=== PATIENT | female | born 1965 | race Caucasian/White ===

== ENCOUNTER → 2021-02-10 | Outpatient (CLI) | payer OTHER, SELFPAY ==
[2021-02-10 14:49] VITALS: BMI 28.1
[2021-02-15 17:34] LABS: HPV APTIMA, High Risk Negative (Negative)
== END | disposition home or self-care (01) ==
LOC: LABSPEC 17:02
PROVIDERS: Visit Provider Obstetrics & Gynecology
DX: Z12.4 Encounter for screening for malignant neoplasm of cervix (principal)
CPT/HCPCS: 87624; 88175; G0145

== ENCOUNTER → 2021-03-14 06:59 | Outpatient (CLI) | payer OTHER, SELFPAY ==
[2021-02-10 14:49] VITALS: BMI 28.1
--- NOTE | 2021-03-14 07:01 | BI_ITS ---
MAMMOGRAPHY - BILATERAL SCREENING REASON FOR EXAM: Female, 56 years old. Routine annual screening examination. PERTINENT HISTORY: Non-contributory. TECHNIQUE: Digital bilateral breast carlos (3D mammographic acquisition) in the CC and MLO projections. 2-D mediolateral oblique (MLO) and craniocaudad (CC) views of both breasts were obtained. CAD: Full Field Digital Mammography with Computer Added Detection was performed. COMPARISON: Comparison is made with prior outside examination dated 08/11/2018. FINDINGS: Breast Composition: There are scattered areas of fibroglandular density. There are no dominant masses or suspicious calcifications. No other significant abnormalities are identified. There has been no significant change since the prior study. BI/SCRN MAMM (CAD)W/CARLOS BILAT IMPRESSION: Stable bilateral screening mammogram. Yearly follow-up mammogram recommended. (A) ASSESSMENT CATEGORY: BIRADS Category 1: Negative. A letter regarding these results will be sent to the patient by the facility within 30 days. Approximately 10% of breast cancers are not detected by mammography. A normal mammogram should not delay biopsy of a clinically suspicious abnormality. [id number] Electronically Signed: Walter Curiel MD at 8:26 EDT , Service support ,
[2021-03-14 08:01] LABS: ALB/GLOB Ratio 1.1 RATIO (0.9-2.4); AST(SGOT) 21 U/L (15-37); Alanine Aminotransfer ALT/SGPT 35 U/L (13-56); Albumin, Serum 4.1 g/dL (3.2-5.0); Alkaline Phosphatase 83 U/L (45-117); Anion Gap 6 (5-15); BUN 19 mg/dL (7-18); BUN/Creat Ratio 29.3 RATIO (10-20); Chloride 107 mmol/L (98-107); Cholesterol 304 mg/dL (200); Creatinine, Serum 0.65 mg/dL (0.55-1.02); EST Glomerular Filtration Rate 101 mL/min (>60); Est Glom Filt Rate - Afr Amer 122 mL/min (>60); Globulin 3.6 g/dL (2.2-4.2); Glucose 101 mg/dL (74-106); High Density Lipoprotein 67 mg/dL; Potassium 3.7 mmol/L (3.5-5.1); Protein, Total 7.7 g/dL (6.4-8.2); Sodium Level 141 mmol/L (136-145); Thyroid Stim Hormone (TSH) 0.34 uIU/mL (0.358-3.74); Triglycerides 131 mg/dL; Very Low Density Lipoprotein 26 mg/dL (5-40)
[2021-03-14 15:35] LABS: Vitamin D,25 Hydroxy 28.7 ng/mL
== END ==
PROVIDERS: Referring Provider Obstetrics & Gynecology; Visit Provider Obstetrics & Gynecology
DX: Z01.419 Encounter for gynecological examination (general) (routine) without abnormal findings (principal); Z12.31 Encounter for screening mammogram for malignant neoplasm of breast; Z13.220 Encounter for screening for lipoid disorders; Z13.29 Encounter for screening for other suspected endocrine disorder; Z13.21 Encounter for screening for nutritional disorder
CPT/HCPCS: 36415; 77063; 77067; 80053; 80061; 82306; 84443

== ENCOUNTER → 2022-01-09 | Outpatient (CLI) | payer OTHER, SELFPAY ==
[2022-01-09 10:34] LABS: Vitamin B12 554 pg/mL (211-911); Vitamin D,25 Hydroxy 37.4 ng/mL
[2022-01-09 10:39] LABS: ALB/GLOB Ratio 1.2 RATIO (0.9-2.4); AST(SGOT) 30 U/L (15-37); Alanine Aminotransfer ALT/SGPT 55 U/L (13-56); Alkaline Phosphatase 115 U/L (45-117); Anion Gap 6 (5-15); BUN 15 mg/dL (7-18); BUN/Creat Ratio 21.5 RATIO (10-20); Calcium,Total 8.9 mg/dL (8.5-10.1); Chloride 106 mmol/L (98-107); Cholesterol 266 mg/dL (200); EST Glomerular Filtration Rate 92 mL/min (>60); Est Glom Filt Rate - Afr Amer 112 mL/min (>60); Globulin 3.4 g/dL (2.2-4.2); Glucose 89 mg/dL (74-106); High Density Lipoprotein 73 mg/dL; Potassium 3.8 mmol/L (3.5-5.1); Protein, Total 7.4 g/dL (6.4-8.2); Sodium Level 140 mmol/L (136-145); T4 Free Direct 1.05 ng/dL (0.76-1.46); Thyroid Stim Hormone (TSH) 0.73 uIU/mL (0.358-3.74); Triglycerides 88 mg/dL; Very Low Density Lipoprotein 18 mg/dL (5-40)
== END | disposition home or self-care (01) ==
LOC: MFPLAB 08:43
PROVIDERS: Visit Provider Family Medicine
DX: E78.5 Hyperlipidemia, unspecified (principal); R79.89 Other specified abnormal findings of blood chemistry; E55.9 Vitamin D deficiency, unspecified; E53.8 Deficiency of other specified B group vitamins
CPT/HCPCS: 36415; 80053; 80061; 82306; 82607; 84439; 84443

== ENCOUNTER → 2022-07-10 | Outpatient (CLI) | payer OTHER, SELFPAY ==
[2022-07-10 10:36] LABS: Cholesterol 265 mg/dL (200); High Density Lipoprotein 67 mg/dL; Triglycerides 78 mg/dL; Very Low Density Lipoprotein 16 mg/dL (5-40)
== END | disposition home or self-care (01) ==
LOC: MFPLAB 09:11
PROVIDERS: PCP Family Medicine; Referring Provider Family Medicine; Visit Provider Family Medicine
DX: E78.5 Hyperlipidemia, unspecified (principal)
CPT/HCPCS: 36415; 80061

== ENCOUNTER → 2022-09-01 | Outpatient (CLI) | payer OTHER, SELFPAY ==
--- NOTE | 2022-09-01 12:16 | BI_ITS ---
MAMMOGRAPHY - BILATERAL SCREENING REASON FOR EXAM: Female, 57 years old. Routine annual screening examination. PERTINENT HISTORY: Non-contributory. History of prior left needle biopsy. TECHNIQUE: Digital bilateral breast carlos (3D mammographic acquisition) in the CC and MLO projections. 2-D mediolateral oblique (MLO) and craniocaudad (CC) views of both breasts were obtained. CAD: Full Field Digital Mammography with Computer Added Detection was performed. COMPARISON: Comparison is made with prior study dated 03/14/2021. FINDINGS: Breast Composition: There are scattered areas of fibroglandular density. There are no dominant masses or suspicious calcifications. A tissue clip marker is seen in the deep upper lateral aspect of the left breast. No other significant abnormalities are identified. There has been no significant change since the prior study. BI/SCRN MAMM (CAD)W/CARLOS BILAT IMPRESSION: Stable bilateral screening mammogram. Yearly follow-up mammogram recommended. (A) ASSESSMENT CATEGORY: BIRADS Category 2: Benign. A letter regarding these results will be sent to the patient by the facility within 30 days. Approximately 10% of breast cancers are not detected by mammography. A normal mammogram should not delay biopsy of a clinically suspicious abnormality. [id number] Electronically Signed: Walter Curiel MD at 11:13 EST ,
== END | disposition home or self-care (01) ==
LOC: OPBI 12:14
PROVIDERS: PCP Family Medicine; Visit Provider Nurse Practitioner Women's Health
DX: Z12.31 Encounter for screening mammogram for malignant neoplasm of breast (principal)
CPT/HCPCS: 77063; 77067

== ENCOUNTER → 2022-09-19 | Outpatient (CLI) | payer OTHER, SELFPAY ==
--- NOTE | 2022-09-19 08:36 | BD_ITS ---
STUDY: DUAL ENERGY X-RAY ABSORPTIOMETRY / DXA REASON FOR EXAM: Female, 57 years old. Estrogen deficiency TECHNIQUE: Bone Mineral Density (BMD) measurements of lumbar spine and bilateral hips were obtained. COMPARISON: None. FINDINGS: Lumbar Spine (L1-L4): g/cm2 (0.705) / T-score (-3.1) / Z-score (-1.9) Findings are suggestive of osteoporosis with a high fracture risk. Left Femur Total: g/cm2 (0.797) / T-score (-0.2) / Z-score (-0.4) Left Femoral Neck: g/cm2 (0.653) / T-score (-1.8) / Z-score (-0.6) Right Femur Total: g/cm2 (0.792) / T-score (-1.2) / Z-score (-0.4) Right Femoral Neck: g/cm2 (0.697) / T-score (-1.4) / Z-score (-0.2) BD/Dexa Bone Density Study IMPRESSION: The patient is considered osteoporotic as outlined below according to World Patel Organization (WHO) criteria with a high fracture risk. Reference Information: The T-score is the number of standard deviations above or below the standard which is normal for young adults at their peak bone mineral density. The World Health Organization (WHO) interprets the T-scores as follows: Above -1 Normal bone density Between -1 and -2.5 Osteopenia Equal to / or below -2.5 Osteoporosis As a practical clinical guideline, osteopenia may be graded as follows: Mild -1 through -1.5 Moderate -1.6 through -2.0 Severe -2.1 through -2.4 The Z-score is the number of standard deviations above or below age-matched controls. A Z-score of less than -1.5 would be considered abnormal. References: 1. NIH Osteoporosis and Related Bone Diseases www osteo.org 2. International Society for Clinical Densitometry www iscd.org 3. National Osteoporosis Foundation www nof.org Electronically Signed: Walter Curiel MD at 13:01 EST ,
== END | disposition home or self-care (01) ==
PROVIDERS: PCP Family Medicine; Referring Provider Obstetrics & Gynecology; Visit Provider Obstetrics & Gynecology
DX: M81.0 Age-related osteoporosis without current pathological fracture (principal); E28.39 Other primary ovarian failure
CPT/HCPCS: 77080

== ENCOUNTER 2025-04-24 12:07 | Inpatient (IN) | payer SELFPAY ==
[2025-04-24] VITALS (14 sets, daily range): BP systolic 100–131; BP diastolic 39–70; PULSE 68–86; RESP 14–18; TEMP 36.6–37.3; O2SAT 92–100; BMI 27.6
[2025-04-24 12:27] LABS: Hematocrit 38.6 % (37-47); Hemoglobin 12.9 g/dL (12.0-15.0); Immature Granulocytes Count 0.140 X10^3/uL (0.0-0.0); Mean Corp Hgb Conc 33.4 g/dL (32-36); Mean Corpuscular Volume 85.0 fL (81-99); Mean Platelet Vol. 9.9 fl (6.2-12.0); NRBC Flagged by Analyzer 0 % (0-5); Platelet Count 213 K/mm3 (150-450); RBC Distribution Width CV 13.2 % (11.6-14.6); RBC Distribution Width SD 40.4 fl (35.1-43.9); Red Blood Count 4.54 M/mm3 (4.2-5.4); White Blood Count 12.0 K/mm3 (4.4-11.0)
--- NOTE | 2025-04-24 12:50 | CT_ITS ---
PROCEDURE: ABDOMEN/PELVIS W IV CONT ONLY 04/24/2025 REASON FOR EXAM: RLQ PAIN TECHNIQUE: ABDOMEN/PELVIS W IV CONT ONLY Coronal and Sagittal reconstruction series were provided. CONTRAST: Isovue 370 VOLUME: 100 mL One or more dose reduction techniques were used (e.g., Automated exposure control, adjustment of the mA and/or kV according to patient size, use of iterative reconstruction technique. RADIATION DOSE SUMMARY: CTDlvol: 11.75 mGy DLP: 529.07 mGycm COMPARISON: None FINDINGS: Lung bases: Unremarkable Liver: Minimal dilatation of the central intrahepatic. This may be related to the status post cholecystectomy state. Gallbladder: Surgically absent. The common bile duct measures 7.5 mm distally. No evidence of choledocholithiasis. Spleen: Normal size. Pancreas: Normal size without evidence of mass surrounding inflammation or ductal dilation. Adrenals: Unremarkable Kidneys: Tiny nonobstructive calculus in the lower pole calyx of the right kidney. Bladder: Unremarkable Reproductive Organs: Heterogeneous appearance of the uterus suggestive of possible fibroid change. Bowel: Unremarkable Appendix: Dilated appendix with evidence of a calcified phlebolith within it and increased markings in the surrounding peritoneal fat. Small amount of fluid is seen in the right lower quadrant. This is in keeping with acute appendicitis. Lymph nodes: None Vasculature: Unremarkable Peritoneum / Retroperitoneum: Unremarkable Bones: Straightening of the normal lumbar lordosis. CT/Abdomen/Pelvis W IV Cont ONLY IMPRESSION: Status post cholecystectomy. Mild degree of central intrahepatic biliary ducta l dilatation. Tiny calculus in the lower pole calyx of the right kidney. Findings in keeping with acute appendicitis with evidence of calcified appendic olith within the appendix. Surrounding inflammatory changes and tiny amount of fluid. Reading Location: [id number]
[2025-04-24 13:01] LABS: AST(SGOT) 74 U/L (<=31); Alanine Aminotransfer ALT/SGPT 80 U/L (<=34); Albumin, Serum 4.3 g/dL (3.4-4.8); Alkaline Phosphatase 178 U/L (35-104); Anion Gap 15 (5-15); BUN 12 mg/dL (4-19); BUN/Creat Ratio 17.8 RATIO (10-20); Calcium,Total 9.5 mg/dL (7.6-11.0); Carbon Dioxide 21.3 mmol/L (21.0-32.0); Chloride 99 mmol/L (98-108); Estimated Creatinine Clearance 86.73 ml/min (50-250); Globulin 3.3 g/dL (2.2-4.2); Glucose 131 mg/dL (70-99); Lipase 21 U/L (13-75); Potassium 3.6 mmol/L (3.3-5.1)
[2025-04-24 13:09] LABS: Red Blood Cells-Urine 0 SEEN /hpf (0-5)
[2025-04-24 13:11] LABS: Color, Urine Amber (Yellow); Glucose, Dipstick Normal (Normal); Leukocyte Esterase-Dipstick 25 /ul (Negative); Nitrite-Dipstick Negative (Negative); Occult Blood-Urine 50 /ul (Negative); Protein-Dipstick 100 mg/dl (Negative); Specific Gravity, Urine 1.025 (1.002-1.030); Urine Bilirubin Dipstick 1 mg/dL (Negative)
--- NOTE | 2025-04-24 13:11 | ED.VIS.GI ---
HPI <REYNALDO Gandhi - Last Filed: 04/24/25 14:34> HPI - GI History of Present Illness Chief Complaint: Abd Pain Narrative Narrative: Patient presenting today with right lower quadrant abdominal pain that started yesterday morning. She reports that her pain started as pain across her lower abdomen but has now localized more to the right lower quadrant. The pain is sharp and constant. She reports that movement of her right leg seems to make her pain worse. Previous abdominal surgery includes a cholecystectomy. She denies associated fevers, chills, nausea, vomiting, urinary symptoms, and bowel changes. She reports that she is healthy with no chronic medical conditions. PFSH <REYNALDO aGndhi - Last Filed: 04/24/25 14:34> PFSH Medical History Anal fissure Melanoma Borderline high cholesterol Home Medications ?Medication ?Instructions ?Recorded ?Last Taken ?Type multivitamin 1 tab PO DAILY 02/10/21 Unknown History vitamin B complex (B 1 tab PO DAILY 02/10/21 Unknown History Complex-Vitamin B12 tablet) Allergy/AdvReac Type Severity Reaction Status Date / Time No Known Allergies Allergy Verified 04/24/25 12:08 Family History Mother Cancer uterine Father CVA (cerebral vascular accident) Surgical History History of surgery on arm H/O rectal sphincterotomy H/O dilation and curettage History of cholecystectomy Social History household members: spouse Smoking Status: Former smoker alcohol intake: current alcohol intake frequency: holidays/special occasions only details: social substance use type: does not use caffeine: Yes what type of physical activity do you participate in: other details: 10,000 steps per day seatbelt use: always do you feel safe at home: Yes ROS <REYNALDO Gandhi - Last Filed: 04/24/25 14:34> ROS ED Constitutional Constitutional ED: Denies chills or fever(s) Cardiovascular Cardiovascular: Denies chest pain Respiratory/Chest Respiratory/Chest: Denies dyspnea Gastrointestinal Gastrointestinal: Reports abdominal pain; Denies constipation, diarrhea, melena, nausea or vomiting Genitourinary Genitourinary ED: Denies dysuria, hematuria or urinary urgency Integumentary Denies rash Neurologic Neurologic: Denies weakness EXAM <REYNALDO Gandhi - Last Filed: 04/24/25 14:34> Physical Exam Const Vital Signs: 04/24/25 12:08 04/24/25 14:06 04/24/25 14:17 Temperature 97.8 F 97.8 F 97.8 F Temperature Source Temporal Pulse Rate 77 77 77 Respiratory Rate 18 18 18 Blood Pressure 105/70 105/70 105/70 Blood Pressure Mean 81 81 Pulse Ox 100 100 100 Oxygen Delivery Method Room Air Room Air Positive well nourished, well developed and no apparent distress General Appearance ED: well developed HEENT Reports normocephalic and head/scalp atraumatic Mouth ED: Yes moist mucous membranes normal Eyes PERRL and EOMs intact bilaterally Neck full ROM and supple Chest Wall inspection of chest normal Resp normal respiratory effort and clear to auscultation bilaterally Cardio regular rate and regular rhythm GI non-distended and no masses GI Narrative: Reported tenderness to McBurney's point, positive Rovsing sign, guarding with palpation to the right lower quadrant, otherwise abdomen is soft Back/Spine normal ROM and normal to inspection Extremity normal to inspection and full ROM Neuro oriented x3, CN's II-XII intact bilaterally, moves all extremities, no focal motor deficits and no sensory deficits noted Sensorium / Orientation: awake and alert Psych mental status grossly normal and thought process normal Skin no rashes or lesions noted and no wounds <Dr. Josue Izaguirre DO - Last Filed: 04/24/25 21:53> Physical Exam Const Vital Signs: 04/24/25 12:08 04/24/25 14:06 04/24/25 14:17 Temperature 97.8 F 97.8 F 97.8 F Temperature Source Temporal Pulse Rate 77 77 77 Respiratory Rate 18 18 18 Blood Pressure 105/70 105/70 105/70 Blood Pressure Mean 81 81 Pulse Ox 100 100 100 Oxygen Delivery Method Room Air Room Air MDM <REYNALDO Gandhi - Last Filed: 04/24/25 14:34> MDM MDM Narrative Medical decision making narrative: Patient presenting today with right lower quadrant abdominal pain that started yesterday morning. She does have tenderness McBurney's point with a positive Rovsing sign and guarding with palpation to the right lower quadrant. Examination is concerning for appendicitis, given the CT scan of the abdomen and pelvis will be obtained to assess for appendicitis, kidney stone, diverticulitis, mass, and other abnormality. Patient given IV fluids, Zofran, and morphine for pain. She does have a mild leukocytosis at 12. CT scan of the abdomen and pelvis reveals findings consistent with acute appendicitis, general surgery was consulted, Dr. Keane will be taking patient to surgery in stable condition, she was given IV Zosyn. Lab Data Attestation: I reviewed the patient's lab results. Lab results narrative: WBC 12, bilirubin 1.5, AST 74, ALT 80, alkaline phosphatase 178 Labs: Laboratory Results - last 24 hr 04/24/25 04/24/25 12:15 13:06 WBC 12.0 H RBC 4.54 Hgb 12.9 Hct 38.6 MCV 85.0 MCH 28.4 MCHC 33.4 RDW Std Deviation 40.4 RDW Coeff of Neri 13.2 Plt Count 213 MPV 9.9 Immature Gran % (Auto) 1.200 H Neut % (Auto) 84.4 H Lymph % (Auto) 8.1 L [place] % (Auto) 6.1 Eos % (Auto) 0.0 Baso % (Auto) 0.2 Absolute Neuts (auto) 10.2 H Absolute Lymphs (auto) 0.97 Nucleated RBC % 0 Sodium 135 Potassium 3.6 Chloride 99 Carbon Dioxide 21.3 Anion Gap 15 BUN 12 Creatinine 0.65 L Estim Creat Clear Calc 86.73 Est GFR (MDRD) Non-Af 101 BUN/Creatinine Ratio 17.8 Glucose 131 H Calcium 9.5 Total Bilirubin 1.50 H AST 74 H ALT 80 H Alkaline Phosphatase 178 H Total Protein 7.7 Albumin 4.3 Globulin 3.3 Albumin/Globulin Ratio 1.3 Lipase 21 Urine Color Urine Clarity Sl. Cloudy Urine pH 5.0 Ur Specific [place] 1.025 Urine Protein 100 H Urine Glucose (UA) Normal Urine Ketones 150 A* Urine Occult Blood 50 H Urine Nitrite Negative Urine Bilirubin 1 H Urine Urobilinogen 1 H Ur Leukocyte Esterase 25 H Urine RBC 0 SEEN Urine WBC 0-5 SEEN Ur Squamous Epith Cells 0-5 SEEN Urine Bacteria 1+ Hyaline Casts 0-5 SEEN Urine Mucus 1+ Radiography Diagnostic Testing: Clinical Impression(s) from Imaging Studies Abdomen/Pelvis CT 04/24/25 12:50 IMPRESSION: Status post cholecystectomy. Mild degree of central intrahepatic biliary ductal dilatation. Tiny calculus in the lower pole calyx of the right kidney. Findings in keeping with acute appendicitis with evidence of calcified appendicolith within the appendix. Surrounding inflammatory changes and tiny amount of fluid. Reading Location: [id number] <Dr. Josue Izaguirre, DO - Last Filed: 04/24/25 21:53> [facility] MDM Narrative Medical decision making narrative: Patient presenting today with right lower quadrant abdominal pain that started yesterday morning. She does have tenderness McBurney's point with a positive Rovsing sign and guarding with palpation to the right lower quadrant. Examination is concerning for appendicitis, given the CT scan of the abdomen and pelvis will be obtained to assess for appendicitis, kidney stone, diverticulitis, mass, and other abnormality. Patient given IV fluids, Zofran, and morphine for pain. She does have a mild leukocytosis at 12. CT scan of the abdomen and pelvis reveals findings consistent with acute appendicitis, general surgery was consulted, Dr. Keane will be taking patient to surgery in stable condition, she was given IV Zosyn. ED attending note: I evaluated the patient in conjunction with the FRANCES. I agree with his/her statements and above findings. I have personally performed a face to face assessment of the patient and have reviewed the FRANCES Note. I performed a substantive portion of the visit including all aspects of the following. I personally saw the patient performed chart review, physical exam, reviewed labs, imaging (if obtained), and formulated a treatment and management plan. This note was generated with [employer] dictation software. It may contain incorrect words, spelling, and punctuation that were not noted in review of the chart prior to signing. Lab Data Labs: Laboratory Results - last 24 hr 04/24/25 04/24/25 12:15 13:06 WBC 12.0 H RBC 4.54 Hgb 12.9 Hct 38.6 MCV 85.0 MCH 28.4 MCHC 33.4 RDW Std Deviation 40.4 RDW Coeff of Neri 13.2 Plt Count 213 MPV 9.9 Immature Gran % (Auto) 1.200 H Neut % (Auto) 84.4 H Lymph % (Auto) 8.1 L [place] % (Auto) 6.1 Eos % (Auto) 0.0 Baso % (Auto) 0.2 Absolute Neuts (auto) 10.2 H Absolute Lymphs (auto) 0.97 Nucleated RBC % 0 Sodium 135 Potassium 3.6 Chloride 99 Carbon Dioxide 21.3 Anion Gap 15 BUN 12 Creatinine 0.65 L Estim Creat Clear Calc 86.73 Est GFR (MDRD) Non-Af 101 BUN/Creatinine Ratio 17.8 Glucose 131 H Calcium 9.5 Total Bilirubin 1.50 H AST 74 H ALT 80 H Alkaline Phosphatase 178 H Total Protein 7.7 Albumin 4.3 Globulin 3.3 Albumin/Globulin Ratio 1.3 Lipase 21 Urine Color Urine Clarity Sl. Cloudy Urine pH 5.0 Ur Specific [place] 1.025 Urine Protein 100 H Urine Glucose (UA) Normal Urine Ketones 150 A* Urine Occult Blood 50 H Urine Nitrite Negative Urine Bilirubin 1 H Urine Urobilinogen 1 H Ur Leukocyte Esterase 25 H Urine RBC 0 SEEN Urine WBC 0-5 SEEN Ur Squamous Epith Cells 0-5 SEEN Urine Bacteria 1+ Hyaline Casts 0-5 SEEN Urine Mucus 1+ Radiography Diagnostic Testing: Clinical Impression(s) from Imaging Studies Abdomen/Pelvis CT 04/24/25 12:50 IMPRESSION: Status post cholecystectomy. Mild degree of central intrahepatic biliary ductal dilatation. Tiny calculus in the lower pole calyx of the right kidney. Findings in keeping with acute appendicitis with evidence of calcified appendicolith within the appendix. Surrounding inflammatory changes and tiny amount of fluid. Reading Location: [facility] <Dr. Josue Izaguirre, DO - Last Filed: 04/24/25 21:53> Critical Care Time Critical Care Time: Yes Critical care time (excluding procedures): 30-74 minutes and Discussing w/Consultants Discharge Plan Dx/Rx/DC Orders Clinical Impression: Acute appendicitis Disposition Disposition: Acute Care Hospital [facility] Discharge Date/Time: 04/24/25 14:08
[2025-04-24 13:13] LABS: Ketone-Dipstick 150 mg/dl (Negative)
[2025-04-24 13:44] LABS: Mucous, Urine 1+ /hpf (<or=2+); Squamous Epithelial Cells - UA 0-5 SEEN /hpf (5-10)
--- NOTE | 2025-04-24 13:45 | APP_PTH ---
PATIENT: AIYANA LAMBERT LOC: MS3 U#:[id number] AGE/SX: 60/F [place] [facility] [place]: Dr. Derik Keane MD : 1965 BED: 1 DIS: 04/26/2025 SPEC #: [id number] RECD: 04/24/25 16:45 STATUS: JULIAN REKeenan #: [id number] KEYANA: 04/24/25 13:[address]: Derik Keane DEPT: SURGICAL PATHOLOGY RECD BY: Jeet Vasquez ENTERED: 04/27/25 10:43 SP TYPE: APPENDIX OTHR DR: Dr. Kraig Maldonado MD Tissues: A - Appendix, NOS Procedures: Surgery Specimen Level III HEADER OPERATION: Laparoscopic appendectomy PRE-OP DIAGNOSIS: Acute appendicitis TISSUE SUBMITTED: A- Appendix MICROSCOPIC DIAGNOSIS A. Appendix, laparoscopic appendectomy: - Acute appendicitis with apparent perforation. - Fecalith. MICROSCOPIC DESCRIPTION Slides are reviewed. GROSS DESCRIPTION A. Received in formalin labeled with the patient's name and date of . Designated as appendix is a 7.9 x 1.0 cm tristan-red to farrell appendix with serosal congestion and patchy fibrinous exudate. The margin is inked black and shaved. Sectioning reveals tristan-farrell and congested mucosa with a moderate amount of fecal material within the lumen to include a fecalith. There is a possible perforation (versus wall thinning). Artificial Limb Fitter sections are submitted in 2 cassettes as follows: A1: Distal tipA2: Margin, cross-sections HI 04/27/2025 CPT:15925
--- NOTE | 2025-04-24 14:06 | HP.PCM.SX_ITS ---
HPI - General HPI Narrative AIYANA LAMBERT, is a 60 F who presents with pain since yesterday. The pain is in the right lower quadrant. She denies nausea or vomiting. Denies fevers or chills. She has a history of laparoscopic cholecystectomy. [facility] Medical History Anal fissure Melanoma Borderline high cholesterol Home Medications ?Medication ?Instructions ?Recorded ?Last Taken ?Type multivitamin 1 tab PO DAILY 02/10/21 Unkn own History vitamin B complex (B 1 tab PO DAILY 02/10/21 Unkn own History Complex-Vitamin B12 tablet) Allergy/AdvReac Type Severity Reaction Status Date / Time No Known Allergies Allergy Verified 04/24/25 12:08 Family History Mother Cancer uterine Father CVA (cerebral vascular accident) Surgical History History of surgery on arm H/O rectal sphincterotomy H/O dilation and curettage History of cholecystectomy Social History household members: spouse Smoking Status: Former smoker alcohol intake: current alcohol intake frequency: holidays/special occasions only details: social substance use type: does not use caffeine: Yes what type of physical activity do you participate in: other details: 10,000 steps per day seatbelt use: always do you feel safe at home: Yes Vital Signs Vital Signs Vital Signs: 04/24/25 12:08 Temperature 97.8 F Temperature Source Temporal Pulse Rate 77 Respiratory Rate 18 Blood Pressure 105/70 Blood Pressure Mean 81 Pulse Ox 100 Oxygen Delivery Method Room Air Weight Weight: 155 lb 11.2 oz Body Mass Index (BMI) 27.6 Physical Exam Const oriented x3 and no apparent distress Resp normal respiratory effort GI soft to palpation Palpation: tender RLQ Extremity normal to inspection Results Lab / Micro Data 04/24/25 12:15 04/24/25 12:15 Labs: Laboratory Results - last 24 hr 04/24/25 12:15: WBC 12.0 H, RBC 4.54, Hgb 12.9, Hct 38.6, MCV 85.0, MCH 28.4, MCHC 33.4, RDW Std Deviation 40.4, RDW Coeff of Neri 13.2, Plt Count 213, MPV 9.9, Immature Gran % (Auto) 1.200 H, Neut % (Auto) 84.4 H, Lymph % (Auto) 8.1 L, [place] % (Auto) 6.1, Eos % (Auto) 0.0, Baso % (Auto) 0.2, Absolute Neuts (auto) 10.2 H, Absolute Lymphs (auto) 0.97, Nucleated RBC % 0, Sodium 135, Potassium 3.6, Chloride 99, Carbon Dioxide 21.3, Anion Gap 15, BUN 12, Creatinine 0.65 L, Estim Creat Clear Calc 86.73, Est GFR (MDRD) Non-Af 101, BUN/Creatinine Ratio 17.8, Glucose 131 H, Calcium 9.5, Total Bilirubin 1.50 H, AST 74 H, ALT 80 H, A lkaline Phosphatase 178 H, Total Protein 7.7, Albumin 4.3, Globulin 3.3, Albumin/Globulin Ratio 1.3, Lipase 21 / 13:06: Urine Color , Urine Clarity Sl. Cloudy, Urine pH 5.0, Ur Specific [place] 1.025, Urine Protein 100 H, Urine Glucose (UA) Normal, Urine Ketones 150 A*, Urine Occult Blood 50 H, Urine Nitrite Negative, Urine Bilirubin 1 H, Urine Urobilinogen 1 H, Ur Leukocyte Esterase 25 H, Urine RBC 0 SEEN, Urine WBC 0-5 SEEN, Ur Squamous Epith Cells 0-5 SEEN, Urine Bacteria 1+, Hyaline Casts 0-5 SEEN, Urine Mucus 1+ Assessment & Plan Assessment/Plan (1) Acute appendicitis: PLAN: The patient has right lower quadrant pain and elevated white count. CT reveals inflamed right lower quadrant with an appendicolith and a dilated appendix. I discussed laparoscopic appendectomy with the patient in detail. I discussed the procedure as well as the risks including but not limited to bleeding, infection, injury to other organ such as the bowel, bladder, ureter. Patient understands all the risks and is 1 to proceed. Antibiotics have been ordered. Derik Keane MD Pager: [facility] [address] [place] [address], [address] [place] [phone] Office:
--- NOTE | 2025-04-24 14:08 | PCM.PRE.AN2 ---
ASA Classification* ASA Classification ASA Classification: 2 and E Assessment & Plan Anesthesia* Anesthesia Assessment Anesthesia Assessment: Discussed sedation and/or anesthesia options, risks, benefits, and alternatives with patient/parents/legal guardian/POA. Questions invited. The patient/parents/legal guardian/POA seems to understand and agrees to proceed with anesthesia plan. Reviewed the physical assessment, medical history, allergy history and patient home medications list prior to surgery/procedure/anesthetic and documented any changes. Performed airway and anesthesia risk assessments. Anesthesia Type Anesthesia Type: General History Source History Obtained from:: Patient and Chart Anesthesia Focused Assessment* Temperature: 97.8 F Pulse Rate: 77 Blood Pressure: 105/70 Respiratory Rate: 18 Pulse Ox: 100 Oxygen Delivery Method: Room Air Airway Assessment Mouth opens: >3 cm Mallampati Score: III Teeth Condition: Caps/Crowns (Patient has a couple crowns. They are tight.) and Missing (Patient has a couple of missing molars lower jaw.) Neck Range of motion (ROM): Full ROM Labs Anesthesia Preop lab: CBC WBC 12.0 K/mm3 (4.4-11.0) H 04/24/25 12:15 04/24/25 RBC 4.54 M/mm3 (4.2-5.4) 04/24/25 12:15 04/24/25 Hgb 12.9 g/dL (12.0-15.0) 04/24/25 12:15 04/24/25 Hct 38.6 % (37-47) 04/24/25 12:15 04/24/25 Plt Count 213 K/mm3 (150-450) 04/24/25 12:15 04/24/25 CHEMISTRY Potassium 3.6 mmol/L (3.3-5.1) 04/24/25 12:15 04/24/25 Sodium 135 mmol/L (133-145) 04/24/25 12:15 04/24/25 BUN 12 mg/dL (4-19) 04/24/25 12:15 04/24/25 Creatinine 0.65 mg/dL (0.70-1.20) L 04/24/25 12:15 04/24/25 Glucose 131 mg/dL (70-99) H 04/24/25 12:15 04/24/25 TSH 0.73 uIU/mL (0.358-3.74) 01/09/22 08:43 01/09/22 COAG Pre-Assessment Diagnosis/Proposed Procedure Planned Operative Procedure(s): Laparoscopic appendectomy. 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 When Was Last Pacemaker Check QUESTION #4 FULL TEXT: You/Your Family Experience fever (hyperthermia) with Anesthesia Last Oral Intake Last Oral intake: Last Oral Intake NPO since Meds taken in AM with sips of water? 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 Female HX of Motion Sickness HX of N/V After Surgery Non-Smoker Duration of Surgery greater than 60 minutes Number of Risk Factors PONV Score Height & Weight Height & Weight: Anesthesia: Height & Weight Height 5 ft 3 in 04/24/25 12:08 Weight: 70.624 kg 04/24/25 12:08 Body Mass Index (BMI) 27.6 04/24/25 12:08 Respiratory Assessment Respiratory Assessment - vinyl top installer: Respiratory Tract Infection Hx - vinyl top installer Hx Respiratory Tract Infection Any additional information?: Yes Hx Respiratory Tract Infection: No STOP Sleep Apnea STOP Sleep Apnea - vinyl top installer: STOP Sleep Apnea - vinyl top installer Hx Hypertension Hx Sleep Apnea CPAP BIPAP Do you snore loudly (louder than talking or can be heard Do you often feel tired/ fatigued/ sleepy during daytime? Has anyone observed you stop breathing during sleep? STOP Results QUESTION #5 FULL TEXT : Do you snore loudly (louder than talking or can be heard through closed doors)? 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 Specify any problems Hx of Preganancy in last 3 Months Nurse Filling Out Transfusion & Questions: Date: Time: Patient unable to answer at this time (ie. confused, unrespo /Reproduction History /Reproductive History - vinyl top installer: /Reproductive Hx- vinyl top installer Hx Now Gestational Age (in weeks): EDC: Hx Hx Para Hx Section SAB No 09/01/22 13:00 Active Medications Active Medications: Current Medications Generic Name Dose Route Start Last Admin Trade Name Freq PRN Reason Stop Dose Admin Piperacillin Sod/Tazobactam 50 mls @ 12.5 mls/hr 04/24/25 22:00 Sod 3.375 gm/ Sodium Chloride IV Q8 HANS Piperacillin Sod/Tazobactam 50 mls @ 12.5 mls/hr 04/24/25 14:15 Sod 3.375 gm/ Sodium Chloride IV 04/24/25 18:14 X1 ONE Sodium Chloride 1,000 mls @ 15 mls/hr 04/24/25 14:00 IV .Q48H HANS PFSH Medical History Anal fissure Melanoma Borderline high cholesterol Home Medications ?Medication ?Instructions ?Recorded ?Last Taken ?Type multivitamin 1 tab PO DAILY 02/10/21 Unknown History vitamin B complex (B 1 tab PO DAILY 02/10/21 Unknown History Complex-Vitamin B12 tablet) Allergy/AdvReac Type Severity Reaction Status Date / Time No Known Allergies Allergy Verified 04/24/25 12:08 Family History Mother Cancer uterine Father CVA (cerebral vascular accident) Surgical History History of surgery on arm H/O rectal sphincterotomy H/O dilation and curettage History of cholecystectomy Social History household members: spouse Smoking Status: Former smoker alcohol intake: current alcohol intake frequency: holidays/special occasions only details: social substance use type: does not use caffeine: Yes what type of physical activity do you participate in: other details: 10,000 steps per day seatbelt use: always do you feel safe at home: Yes Review of Systems (Anesthesia) ROS Narrative System reviewed and no additional complaints, except as documented.
[2025-04-24] MEDS: 0.9% Normal Saline (1000mL) 1,000 ML 15 ML IV (14:09)
[2025-04-24] MEDS: Lactated Ringers 1,000 ML 1000 ML IV (14:33)
[2025-04-24] MEDS: Midazolam 2 MG/2 ML Syringe 1.5 MG IV (14:33)
[2025-04-24] MEDS: fentaNYL 100 MCG/2 ML Ampul 50 MCG IV (14:38)
[2025-04-24] MEDS: Lidocaine 1% (5 ml sdv) 5 ML Vial IV (14:38)
[2025-04-24] MEDS: Piperacil/Tazobactam 3.375 GM/50 ML ML IV (14:40)
[2025-04-24] MEDS: Bupiv/Epi 0.25% 30 ML Vial (15:10)
--- NOTE | 2025-04-24 15:15 | OP.PCM_ITS ---
Operative Report (Standard) Operative Information Date of Procedure: 04/24/25 Pre-Operative Diagnosis: Acute appendicitis Post-Operative Diagnosis: Acute appendicitis with purulence Surgery/Procedure Performed: Laparoscopic appendectomy terrazzo worker: Yes Hot Dip Plating Supervisor: Rianna Sheikh Tasks completed by first officer and flight instructor: Opening & closing and Retracting Type of Anesthesia: General/Regional RN Documented Start/Stop Times: Operation Date: 04/24/25 13:45 Case Time Into Pre-Op 04/24/25 13:54 Anesthesia Start 04/24/25 14:33 Into Room 04/24/25 14:33 Procedure Start 04/24/25 14:46 Procedure End 04/24/25 15:13 Procedure Start Time: 14:46 Procedure Stop Time: 15:13 Select all DRAINS/GRAFTS/IMPLANTS that apply: Drains Drain details: KEVIN to bulb suction Estimated Blood Loss: 10 Specimen collected: Yes Description of specimen(s) removed: Appendix Description of surgery: The patient was brought into the operating room and general anesthesia was induced. The left arm was tucked and the abdomen was prepped and draped in usual sterile fashion. A small midline incision was made superior to the umbilicus and deepened to the level of the fascia. The fascia was elevated and incised. The peritoneum was also elevated and incised. A finger sweep was performed and a balloon trocar was placed into the abdomen and inflated. The abdomen was insufflated to 15 mmHg and the camera was inserted and the abdomen was inspected for any injuries upon entering the abdomen. There were none. The patient was placed in Trendelenburg position and a 5 mm ports placed in the left lower quadrant and suprapubic areas under direct visualization. Next using atraumatic bowel graspers the appendix was identified. The appendix was grasped and elevated and Enseal was used to take down the mesoappendix. A stapler was used to come across the base of the appendix. The appendix was then placed in Endo Catch bag and removed through the umbilical incision. There was purulence in the pelvis which was suctioned and irrigated. The staple line was inspected and found to be hemostatic and intact. A 15 [place] round drain was placed through the left lower quadrant incision and placed into the pelvis. It was sutured to the skin using 4-0 nylon. The 2 5 mm ports are removed under direct visualization. The balloon trocar was deflated and removed and all the air was removed from the abdomen. The umbilical incision fascia was closed with an 0 Vicryl [id number] suture. The incisions were then irrigated with saline and dried. Local anesthetic was injected into the incision sites. The skin incisions were then closed with interrupted 4-0 Monocryl suture and Steri- Strips. Bandages were applied and the patient was awoken and taken to PACU in stable condition. Patient tolerated the procedure well. Surgical Findings: Gangrenous appendicitis with purulence Complications Complications: No Admit VTE Documentation VTE Mechan Device Prophylaxis: SCD's
--- NOTE | 2025-04-24 15:28 | PCM.POST.ANE ---
Anesthesia: Postop Eval I Current Vital Signs Temperature: 98.8 F Pulse Rate: 84 Blood Pressure: 114/39 Respiratory Rate: 16 Pulse Ox: 97 Oxygen Delivery Method: Nasal Cannula Oxygen Flow Rate (L/min): 4 Assessment Airway patent: Yes Spontaneous unlabored respirations: Yes Mental status: Awake and Calm nausea: No Vomiting: No Anesthesia Complication: No Fluid Hydration Crystalloid volume administer (ml): 800 Total IV fluid infused: 800 Progress Note Anesthesia document: Postop Eval 1 completed: Yes
--- OUTSIDE RECORDS SUMMARY | 2025-04-24 16:47 | XMS RPT_ITS | CCD ---
Author Organization [facility] CliniSymi Care Team Providers Care Power Tong Operator Name Role Phone OMA CAR Attending Unavailable JOSEP, TOMER Primary Care Unavailable JOSEP, TOMER Primary Care Unavailable JOSEP, TOMER Attending Unavailable JOSEP, TOMER Primary Care Unavailable LISBONELIDA Moe H Referring Unavailable LISELIDA MEHTA H Attending Unavailable MILAGRO ODELL Referring Unavailable Care Physician, No Primary Referring Provider Un available Dr. Maryana Jernigan Attending Provider Dr. Carlos Maldonado Primary Care Provider Carlos Maldonado Attending Unavailable Care Physician, No Primary Primary Care Unava ilable Carlos Maldonado Attending Unavailable Carlos Maldonado Referring Unavailable Carlos Maldonado Primary Care Unavailable Maryana Jernigan Attending Unavailable Maryana Jernigan Referring Unavailable Carlos Maldonado Primary Care Unavailable Care Physician, No Primary Referring Unava ilable Maryana Jernigan Attending Unavailable Carlos Maldonado Primary Care Unavailable Yuly Acuña Attending Unavailable Carlos Maldonado Primary Care Unavailable Dr. Vladislav Maldonado MD Primary Care Provider Dr. Josue Izaguirre DO Emergency Provider [phone] Diya PEDRO, Dr. More Attending Provider Allergies Allergy Classification Reported Allergen(s) Allergy Type Date of Onset Reaction(s) Facility (1 source) Acetaminophen / HYDROcodone; Translations: [HYDROCODONE-ACETA MINOPHEN] Drug Allergy 12-09-2014 [facility] Repository (1 source) Acetaminophen / oxyCODONE; Translations: [OXYCODONE-ACETAMI NOPHEN] Drug Allergy 12-09-2014 [facility] Repository (1 source) HYDROmorphone; Translations: [HYDROMORPHONE (BULK)] Drug Allergy 12-09-2014 [facility] Repository Medications Current Medications Medication Drug Class(es) Dates Sig (Normalized) Sig (Original) Multivitamin preparation (3 sources) Start: 02-10-2021 take 1 tablet by mouth once daily Multivitamin Active 1 TABLET PO DAILY February 09, 2021 11:00pm Multivitamin tablet (1 source) Start: 02-10-2021 Multivitamin tablet Active 1 {tbl} PO DAILY February 10, 2021 12:00am Vitamin B Complex (B Complex-Vitamin B12) tablet (4 sources) Start: 02-10-2021 Vitamin B Complex (B Complex-Vitamin B12) tablet Active 1 {tbl} PO DAILY February 10, 2021 12:00am Start: 02-10-2021 take 1 tablet by soni th once daily Vitamin B Complex (B Complex-Vitamin B12) tablet Active 1 TABLET PO DAILY February 09, 2021 11:00pm Problems Problem Classification Problem Date Documented Da te Episodic/Chronic Anal and rectal conditions (4 sources) Anal fissure; Translations: [Anal fissure, unspecified] 12-30-2020 Episodic Appendicitis and other appendiceal conditions (2 sources) Acute appendicitis; Translations: [Unspecified acute appendicitis] 04-24-2025 Episodic Disorders of lipid metabolism (2 sources) Hyperlipidemia, unspecified; Translations: [Hyperlipidemia, unspecified] Onset: 01-11-2022 Chronic Melanomas of skin (4 sources) Malignant melanoma; Translations: [Malignant melanoma of skin, unspecified] 02-10-2021 Chronic Comment on above: 1997 Menopausal disorders (1 source) Other primary ovarian failure; 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: 09-01-2022 Chronic Osteoporosis (1 source) Age-related osteoporosis without current pathological fracture; Translations: [Age-related osteoporosis without current pathological fracture] Onset: 09-20-2022 Chronic Other nutritional; endocrine; and metabolic disorders (4 sources) Cholesterol level - finding; Translations: [Disorder of lipoprotein metabolism, unspecified] 12-30-2020 Chronic Other screening for suspected conditions (not mental disorders or infectious disease) (2 sources) Encounter for screening mammogram for malignant neoplasm of breast; Translations: [Encounter for screening mammogram for malignant neoplasm of breast] Onset: 08-09-2018 Episodic Results Test Name Value Interpretation Reference Range Facility Absolute lymphocyte countOrd ered By: ED PROVIDER on 04-24-2025 Lymphocytes Auto (Unsp spec) [#/Vol] 0.97 10*3/uL 0.83-4.51 [facility] Absolute neutrophil countOrd ered By: ED PROVIDER on 04-24-2025 Neutrophils (Bld) [#/Vol] 10.2 10*3/uL High 2.0-7.7 [facility] Anion gap in Serum or Plasma Ordered By: ED PROVIDER on 04-24-2025 Anion gap [Moles/Vol] 15 mmol/L 5-15 [facility] Automated lymphocyte count a s percentage of total leukocytesOrdered By: ED PROVIDER on 04-24-2025 Lymphocytes/100 WBC Auto (Unsp spec) 8.1 % Low 19-41 [facility] BUN/creatinine ratioOrdered By: ED PROVIDER on 04-24-2025 Urea nitrogen/Creatinine [Mass ratio] 17.8 mg/mg 10-20 [facility] Basophil percentageOrdered B y: ED PROVIDER on 04-24-2025 Basophils/100 WBC (Bld) 0.2 % 0-[address] [facility] Bilirubin Test strip Ql (U)O rdered By: Chayito Leavitt on 04-24-2025 Bilirubin Ql (U) 1 mg/dL High Negative [facility] Comment on above: COLOR OF URINE MAY A FFECT DIPSTICK RESULTS. Bilirubin, totalOrdered By: ED PROVIDER on 04-24-2025 Bilirubin [Mass/Vol] 1.50 mg/dL High 0.00-1.[address] [facility] Carbon dioxide, total [Moles /volume] in Central venous bloodOrdered By: ED PROVIDER on 04-24-2025 CO2 [Moles/Vol] 21.3 mmol/L 21.0-32.0 [facility] Chloride assayOrdered By: ED PROVIDER on 04-24-2025 Chloride [Moles/Vol] 99 mmol/L 98-[address] [facility] Eosinophil percentageOrdered By: ED PROVIDER on 04-24-2025 Eosinophils/100 WBC (Bld) 0.0 % 0-5 [facility] Erythrocyte distribution wid th ratioOrdered By: ED PROVIDER on 04-24-2025 Erythrocyte distribution width (RBC) [Ratio] 13.2 % 11.6-14.6 [facility] Erythrocyte distribution wid th standard deviationOrdered By: ED PROVIDER on 04-24-2025 Erythrocyte distribution width (RBC) [Ratio] 40.4 fl 35.1-43.9 [facility] Glomerular filtration rate ( GFR) estimation/1.73 sq m using serum, plasma, or whole bOrdered By: ED PROVIDER on 04-24-2025 GFR/1.73 sq M.predicted among non-blacks MDRD (S/P/Bld) [Vol rate/Area] 101 mL/min/{1.73_m2} >60 [facility] Comment on above: mL/min/1.73m2 CKD-EP I Creatinine Equation (2020) Hematocrit Auto (Bld) [Volum e fraction]Ordered By: ED PROVIDER on 04-24-2025 Hematocrit (Bld) [Volume fraction] 38.6 % 37-47 [facility] Hemoglobin measurementOrdere d By: ED PROVIDER on 04-24-2025 Hemoglobin (Bld) [Mass/Vol] 12.9 g/dL 12.0-15.0 [facility] Hyaline casts LM.LPF (Urine sed) [#/Area]Ordered By: Chayito Leaivtt on 04-24-2025 Hyaline casts (Urine sed) [#/Area] 0 /[LPF] 0-5 [facility] Immature granulocytes/100 WB C Auto (Bld)Ordered By: ED PROVIDER on 04-24-2025 Immature granulocytes/100 WBC (Bld) 1.200 % High 0.0-0.9 [facility] Comment on above: IG% - Immature Granu locytes (promyelocytes, myelocytes and metamyelocytes) > 1% indicates that a LEFT SHIFT is Present. Ketones Test strip Ql (U)Ord ered By: Chayito Leavitt on 04-24-2025 Ketones Ql (U) 150 mg/dl Abnormal Negative [facility] Comment on above: CRITICAL VALUE LIMON D VANDANA BHAGAT04/24/25 1312 Bina Molina.RESULTS READ BACK BY SAME. Laboratory - Chemistry and C hemistry - challengeOrdered By: ED PROVIDER on 04-24-2025 AST [Catalytic activity/Vol] 74 U/L High <32 [facility] Lipase measurementOrdered By : ED PROVIDER on 04-24-2025 Lipase [Catalytic activity/Vol] 21 U/L 13-75 [facility] Comment on above: Please note:LIPASE r evised reference range effective 22. New Lipase methodology. Expected to produce lower values than the previous assay method. NEW Reference Range: 13 - 75 U/L MCV (mean corpuscular volume ) determinationOrdered By: ED PROVIDER on 04-24-2025 MCV (RBC) [Entitic vol] 85.0 fL 81-[address] [facility] Mean corpuscular hemoglobin (MCH) determinationOrdered By: ED PROVIDER on 04-24-2025 MCH (RBC) [Entitic mass] 28.4 pg 27.0-32.0 [facility] Mean corpuscular hemoglobin concentration (MCHC) determinationOrdered By: ED PROVIDER on 04-24-2025 MCHC (RBC) [Mass/Vol] 33.4 g/dL 32-36 [facility] Mean platelet volume determi nationOrdered By: ED PROVIDER on 04-24-2025 Platelet mean volume (Bld) [Entitic vol] 9.9 fL 6.2-12.0 [facility] Microscopic analysis of urin e for red blood cells (RBC)Ordered By: Chayito Leavitt on 04-24-2025 Microscopic analysis of urine for red blood cells (RBC) 0 SEEN /hpf 0-5 [facility] Monocyte percentageOrdered B y: ED PROVIDER on 04-24-2025 Monocytes/100 WBC (Bld) 6.1 % 0-[address] [facility] Mucus LM Ql (Urine sed)Order ed By: Chayito Leavitt on 04-24-2025 Mucus Ql (Urine sed) 1+ /hpf [facility] Neutrophil percentageOrdered By: ED PROVIDER on 04-24-2025 Neutrophils/100 WBC (Bld) 84.4 % High 47-70 [facility] Nitrite Test strip Ql (U)Ord ered By: Chayito Leavitt on 04-24-2025 Nitrite Ql (U) Negative Negative [facility] Nucleated red blood cell per centageOrdered By: ED PROVIDER on 04-24-2025 Nucleated RBC/100 WBC (Bld) [Ratio] 0 % 0-5 [facility] Platelet countOrdered By: ED PROVIDER on 04-24-2025 Platelets (Bld) [#/Vol] 213 10*3/uL 150-450 [facility] Potassium measurement (mass/ volume)Ordered By: ED PROVIDER on 04-24-2025 Potassium (Unsp spec) [Mass/Vol] 3.6 mmol/L 3.3-5.1 [facility] Protein Test strip Ql (U)Ord ered By: Chayito Leavitt on 04-24-2025 Protein Ql (U) 100 mg/dl High Negative [facility] RBC Auto (Bld) [#/Vol]Ordere d By: ED PROVIDER on 04-24-2025 RBC (Bld) [#/Vol] 4.54 10*6/uL 4.2-5.4 [facility] Serum creatinine measurement (mass/volume)Ordered By: ED PROVIDER on 04-24-2025 Creatinine [Mass/Vol] 0.65 mg/dL Low 0.70-1.20 [facility] Serum globulin measurementOr dered By: ED PROVIDER on 04-24-2025 Globulin (S) [Mass/Vol] 3.3 g/dL 2.2-4.[address] [facility] Serum glucose measurement (m ass/volume)Ordered By: ED PROVIDER on 04-24-2025 Glucose [Mass/Vol] 131 mg/dL High 70-99 [facility] Serum or plasma alanine lafleur otransferase (ALT) measurementOrdered By: ED PROVIDER on 04-24-2025 ALT [Catalytic activity/Vol] 80 U/L High <35 [facility] Serum or plasma albumin venkata urement (mass/volume)Ordered By: ED PROVIDER on 04-24-2025 Albumin [Mass/Vol] 4.3 g/dL 3.4-4.8 [facility] Serum or plasma albumin/glob ulin mass ratioOrdered By: ED PROVIDER on 04-24-2025 Albumin/Globulin [Mass ratio] 1.3 {ratio} 0.9-2.4 [facility] Serum or plasma alkaline kelli sphatase measurementOrdered By: ED PROVIDER on 04-24-2025 ALP [Catalytic activity/Vol] 178 U/L High 35-104 [facility] Serum or plasma calcium venkata urement (mass/volume)Ordered By: ED PROVIDER on 04-24-2025 Calcium [Mass/Vol] 9.5 mg/dL 7.6-11.0 [facility] Serum or plasma urea nitroge n measurement (mass/volume)Ordered By: ED PROVIDER on 04-24-2025 Urea nitrogen [Mass/Vol] 12 mg/dL 4-19 [facility] Sodium levelOrdered By: ED P ROVIDER on 04-24-2025 Sodium [Moles/Vol] 135 mmol/L 133-145 [facility] Squamous epithelial cells de tection in urine sediment by light microscopyOrdered By: Chayito Leavitt on 04-24-2025 Epithelial cells.squamous LM Ql (Urine sed) 0-5 SEEN /hpf 5-10 [facility] Total proteinOrdered By: ED PROVIDER on 04-24-2025 Protein [Mass/Vol] 7.7 g/dL 5.9-8.4 [facility] Urine clarityOrdered By: Walker Leavitt on 04-24-2025 Clarity (U) Sl. Cloudy Clear [facility] Urine color determinationOrd ered By: Chayito Leavitt on 04-24-2025 Color (U) Yellow [facility] Urine glucose detectionOrder ed By: Chayito Leavitt on 04-24-2025 Glucose Ql (U) Normal mg/dl Normal [facility] Urine leukocyte esterase det ection by dipstickOrdered By: Chayito Leavitt on 04-24-2025 Leukocyte esterase Test strip Ql (U) 25 /ul High Negative [facility] Urine pHOrdered By: Saurabh Leavitt on 04-24-2025 pH (U) 5.0 [pH] 5.0 - 8.0 [facility] Urine sediment bacteria coun t by microscopy (number/high power field)Ordered By: Chayito Leavitt on 04-24-2025 Bacteria LM.HPF (Urine sed) [#/Area] 1 /[HPF] None Seen [facility] Urine specific gravity measu rementOrdered By: Chayito Leavitt on 04-24-2025 Specific gravity (U) [Rel density] 1.025 1.002-1.030 [facility] Urine urobilinogen measureme ntOrdered By: Chayito Leavitt on 04-24-2025 Urobilinogen Ql (U) 1 mg/dl High Normal [facility] White blood cell (WBC) count Ordered By: ED PROVIDER on 04-24-2025 WBC (Bld) [#/Vol] 12.0 10*3/uL High 4.4-11.0 [facility] White blood cell countOrdere d By: Chayito Leavitt on 04-24-2025 White blood cell count 0-5 SEEN /hpf 0-5 [facility] Dexa Bone Density Studyon Dexa Bone Density Study [facility] Imaging Services [address] [place] [address] Dexa Bone Density Study MR#: [id number] Acct: [id number] Name: XIMENA MCCARTNEY Rep #: [id number] : 1965 F 57 From: Walter galindo MD PCP: Dr. Carlos Maldonado MD Status: REG CLI Study: Dexa Bone Density Study Date of Exam: 09/19/22 Exam# [id number] Ordering Dr: Maryana Jernigan STUDY: DUAL ENERGY X-RAY ABSORPTIOMETRY / DXA REASON FOR EXAM: Female, 57 years old. Estrogen deficiency TECHNIQUE: Bone Mineral Density (BMD) measurements of lumbar spine and bilateral hips were obtained. COMPARISON: None. FINDINGS: Lumbar Spine (L1-L4): g/cm2 (0.705) / T-score (-3.1) / Z-score (-1.9) Findings are suggestive of osteoporosis with a high fracture risk. Left Femur Total: g/cm2 (0.797) / T-score (-0.2) / Z-score (-0.4) Left Femoral Neck: g/cm2 (0.653) / T-score (-1.8) / Z-score (-0.6) Right Femur Total: g/cm2 (0.792) / T-score (-1.2) / Z-score (-0.4) Right Femoral Neck: g/cm2 (0.697) / T-score (-1.4) / Z-score (-0.2) BD/Dexa Bone Density Study IMPRESSION: The patient is considered osteoporotic as outlined below according to World Patel Organization (WHO) criteria with a high fracture risk. Reference Information: The T-score is the number of standard deviations above or below the standard which is normal for young adults at their peak bone mineral density. The World Health Organization (WHO) interprets the T-scores as follows: Above -1 Normal bone density Between -1 and -2.5 Osteopenia Equal to / or below -2.5 Osteoporosis As a practical clinical guideline, osteopenia may be graded as follows: Mild -1 through -1.5 Moderate -1.6 through -2.0 Severe -2.1 through -2.4 The Z-score is the number of standard deviations above or below age-matched controls. A Z-score of less than -1.5 would be considered abnormal. References: 1. NIH Osteoporosis and Related Bone Diseases www osteo.org 2. International Society for Clinical Densitometry www iscd.org 3. National Osteoporosis Foundation www nof.org Electronically Signed: Walter Curiel MD at 13:01 EST Reading Location ID and State: [facility] / [place] , Service support , CC: Dr. Carlos Maldonado MD; Dr. Maryana Jernigan MD Certified Hand Therapist: Signed Normal [facility] Spectrographic Analyst Office Visit Reporton 09-01-2022 Spectrographic Analyst Office Visit Report [facility] [address] [place] [address] OFFICE VISIT Date of Service: 09/01/22 MR#: [id number] Acct: [id number] Name: XIMENA MCCARTNEY Rep #: [id number] : 1965 Provider: Dr. 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 Is patient in pain?: No Allergies No Known Allergies Allergy (Verified 09/01/22 12:58) Medications multivitamin 1 tab PO DAILY 02/10/21 [History Confirmed 09/01/22] vitamin B complex (B Complex-Vitamin B12 tablet) 1 tab PO DAILY 02/10/21 [History Confirmed 09/01/22] Is last menstrual period known: No Post menopausal: No Patient : No : No PFSH Medical History Anal fissure Borderline high cholesterol Melanoma Surgical History H/O dilation and curettage H/O rectal sphincterotomy History of cholecystectomy History of surgery on arm Family History Mother Cancer uterine Father CVA (cerebral vascular accident) Social History (Updated 09/01/22 @ 13:02 by Mela Melo) household members: spouse Smoking Status: Former smoker alcohol intake: current alcohol intake frequency: holidays/special occasions only details: social substance use type: does not use caffeine: Yes what type of physical activity do you participate in: other details: 10,000 steps per day seatbelt use: always do you feel safe at home: Yes HPI Encounter for routine gynecological examination Details: XIMENA MCCARTNEY is a 57 year old who presents for annual exam. Last PAP: 2020 nl History of abnormal PAP: no Last mammogram: today History of abnormal mammogram: no Colon cancer screening: up to date Other preventative health care screenings: dr maldonado Female Reproductive History Questions: metorrhagia: No, sexually active: Yes, dyspareunia: No and PCB: No Menopausal Symptoms: No hot flashes, No night sweats, No weight change, No mood changes, No difficulty concentrating, No sleep problems and No change in libido ROS Const Constitutional: Reports as per HPI; Denies fatigue, increased appetite, poor appetite, night sweats, weight gain or weight loss Cardio Card: Denies chest pain Resp Resp: Denies cough or dyspnea GI GI: Reports as per HPI; Denies abdominal pain, bloating, constipation, nausea or vomiting : Reports as per HPI and other; Denies difficulty voiding, dysuria, hematuria, hot flashes, nipple discharge, pelvic pain, prolapse symptoms, urinary frequency, urinary incontinence, urinary urgency, vaginal discharge, vaginal dryness, vaginal odor or vaginal pruritus Skin Skin/Breast: Denies changing lesions, breast mass, breast pain, breast skin changes or nipple discharge Psych Psych: Denies anxiety, change in libido, depression or difficulty concentrating Exam Const General: cooperative, healthy appearing, comfortable, no acute distress, well developed and well groomed HENSD Head: normal to inspection and normocephalic Ears: hearing grossly normal bilaterally and external ears normal Nose: external nose normal Face and sinus: normal facial exam Neck Neck: normal visual inspection, full ROM and no lymphadenopathy Thyroid: thyroid normal Chest Chest palpation inspection: normal inspection of the chest Breast inspection: normal inspection of the breasts and normal inspection of the axillae Breast palpation: normal palpation of the breasts, normal palpation of the axillae and no axillary lymphadenopathy Resp Effort Inspection: normal respiratory effort GI Inspection: normal to inspection and non-distended Palpation: soft, no hepatosplenomegaly and no guarding General: bladder normal to palpation External Female Exam: normal external appearance, normal appearance of the urethra and no lesions Urethra: normal appearance of the urethra and normal palpation Speculum Exam - Vagina: normal appearance of the vagina and normal vaginal discharge Speculum Exam - Cervix: normal appearance of the cervix, no cervical discharge, no lesions and nontender Bimanual Exam- Vagina Uterus: normal bimanual exam, uterine size normal, bladder normal to palpation, No tender, uterine mobility normal, consistency normal, non-tender and no cervical motion tenderness Bimanual Exam- Adnexa, other: normal adnexae, no masses and non-tender Skin General: no rashes or lesions noted Neuro General: patient alert, moves all extremities and no focal motor deficits Extrem General: normal to inspect (more content not included)... Normal [facility] SCRN MAMM (CAD)W/CARLOS BILATo n 09-01-2022 SCRN MAMM (CAD)W/CARLOS BILAT [facility] Imaging Services [address] [place] [address] SCRN MAMM (CAD)W/CARLOS BILAT MR#: [id number] Acct: [id number] Name: XIMENA MCCARTNEY Rep #: [id number] : 1965 F 57 From: Walter galindo MD PCP: Dr. Carlos Maldonado MD Status: [facility] Study: SCRN MAMM (CAD)W/CARLOS BILAT Date of Exam: 08/05 Exam# [id number] Ordering Dr: Yuly Acuña SCIENTIFIC PROCESS OPERATOR SCIENTIFIC PROCESS OPERATOR -C MAMMOGRAPHY - BILATERAL SCREENING REASON FOR EXAM: Female, 57 years old. Routine annual screening examination. PERTINENT HISTORY: Non-contributory. History of prior left needle biopsy. TECHNIQUE: Digital bilateral breast carlos (3D mammographic acquisition) in the CC and MLO projections. 2-D mediolateral oblique (MLO) and craniocaudad (CC) views of both breasts were obtained. CAD: Full Field Digital Mammography with Computer Added Detection was performed. COMPARISON: Comparison is made with prior study dated 03/14/2021. FINDINGS: Breast Composition: There are scattered areas of fibroglandular density. There are no dominant masses or suspicious calcifications. A tissue clip marker is seen in the deep upper lateral aspect of the left breast. No other significant abnormalities are identified. There has been no significant change since the prior study. BI/SCRN MAMM (CAD)W/CARLOS BILAT IMPRESSION: Stable bilateral screening mammogram. Yearly follow-up mammogram recommended. (A) ASSESSMENT CATEGORY: BIRADS Category 2: Benign. A letter regarding these results will be sent to the patient by the facility within 30 days. Approximately 10% of breast cancers are not detected by mammography. A normal mammogram should not delay biopsy of a clinically suspicious abnormality. [id number] Electronically Signed: Walter Curiel MD at 11:13 EST Reading Location ID and State: [facility] / [place] , Service support , CC: JOSE Acuña; Dr. Carlos Maldonado MD Certified Hand Therapist: Signed Normal [facility] Basophil percentageOrdered B y: Dr. Maldonado on 07-10-2022 Cholesterol [Mass/Vol] 265 mg/dL <200 [facility] Comment on above: <200 mg/dL Desirable 200-240 mg/dL Borderline >240 mg/dL High Risk Triglyceride [Mass/Vol] 78 mg/dL <[address] [facility] Comment on above: The drugs N-Acetylcy steine and Metamizole may falsely depress this assay.Serum Triglycerides Reference Interval Normal <150 mg/dL Borderline high 150 - 199 mg/dL High 200 - 499 mg/dL Very High > or = 500 mg/dL Lipid Profileon 07-10-2022 Cholesterol [Mass/Vol] 265 mg/dL High 200 [facility] Comment on above: Result Comment: <200 mg/dL Desirable 200-240 mg/dL Borderline >240 mg/dL High Risk Performed By: #### L 500.4100 #### [facility] [address] [place], [address] Cholesterol in HDL [Mass/Vol] 67 mg/dL Normal [facility] Comment on above: Result Comment: The drugs N-Acetylcysteine and Metamizole may falsely depress this assay. Reference Range HDL <40 mg/dL Low HDL Cholesterol HDL >or= 60 mg/dL High HDL Cholesterol Performed By: #### L 500.4100 #### [facility] [address] [place], [address] Cholesterol in LDL [Mass/Vol] 182 mg/dL High 0-130 [facility] Comment on above: Performed By: #### L 500.4100 #### [facility] [address] [place], [place], [address] Cholesterol in VLDL [Mass/Vol] 16 mg/dL Normal 5-40 [facility] Comment on above: Performed By: #### L 500.4100 #### [facility] [address] [place], [address] Triglyceride [Mass/Vol] 78 mg/dL Normal [facility] Comment on above: Result Comment: The drugs N-Acetylcysteine and Metamizole may falsely depress this assay. Serum Triglycerides Reference Interval Normal <150 mg/dL Borderline high 150 - 199 mg/dL High 200 - 499 mg/dL Very High > or = 500 mg/dL Performed By: #### L 500.4100 #### [facility] [address] [place], [place], [address] Serum or plasma cholesterol in HDL measurement (mass/volume)Ordered By: Dr. Maldonado on 07-10-2022 Cholesterol in HDL [Mass/Vol] 67 mg/dL >40 [facility] Comment on above: The drugs N-Acetylcy steine and Metamizole may falsely depress this assay. Reference Range HDL <40 mg/dL Low HDL Cholesterol HDL >or= 60 mg/dL High HDL Cholesterol Serum or plasma cholesterol in VLDL measurement (mass/volume)Ordered By: Dr. Maldonado on 07-10-2022 Cholesterol in VLDL [Mass/Vol] 16 mg/dL 5-40 [facility] Serum or plasma low density lipoprotein (LDL) cholesterol measurement (mass/volume)Ordered By: Dr. Maldonado on 07-10-2022 Cholesterol in LDL [Mass/Vol] 182 mg/dL 0-130 [facility] CT CARDIAC SCORINGon 022 CT CARDIAC SCORING Patient Name: XIMENA MCCARTNEY STUDY: CT CARDIAC SCORING; 01/23/2022 8:53 am INDICATION: Hyperlipidemia, unspecified. COMPARISON: None. ACCESSION NUMBER(S): [id number] ORDERING CLINICIAN: VLADISLAV MALDONADO TECHNIQUE: Using prospective ECG gating, CT scan of the coronary arteries was performed without intravenous contrast. Coronary calcium scoring was performed according to the method of Agatston. FINDINGS: The score and distribution of calcium in the coronary arteries is as follows: LM 0, LAD 0, LCx 0, RCA 0, Total 0 The visualized mid/lower ascending thoracic aorta measures 2.9 cm in diameter. The heart is normal in size. No pericardial effusion is present. No gross evidence of mediastinal or hilar lymphadenopathy or masses is identified. The visualized segments of the lungs are normally expanded. The visualized subdiaphragmatic structures appear intact. IMPRESSION: 1. Coronary artery calcium score of 0*. *Coronary artery calcium scoring may be helpful in predicting the risk for future coronary heart disease events. According to the [employer] Clinical Expert Consensus Task Force, such testing provides important prognostic information in patients with more than one coronary heart disease risk factor. The coronary artery calcium score correlates with the annual risk of a non-fatal myocardial infarction or coronary heart disease . Coronary artery score Annual Risk 0-99 0.4% 100-399 1.3% >400 2.4% These three breakpoints correspond to lower, intermediate and high risk states for future coronary events. Such information should be used, along with appropriate clinical judgment, to make decisions regarding the intensity of risk factor management strategies to treat blood lipids and to modify other non-lipid coronary risk factors. Reference: Henderson P et al. Circulation. 2007; 115:402-426 Electronically signed by: WOOD RODRIGUEZ MD [facility] Metabolic [facility] 01-09-2022 Albumin [Mass/Vol] 4.0 g/dL Normal 3.2-5.0 [facility] Comment on above: Order Comment: Order Date: 01/09/22 Order Info: 0786-1 - CMP Order Info: [id number] - LIPID Order Info: 3016-3 - TSH Order Info: 3024-7 - T4F Performed By: #### L 500.4100, L503.0105, L506.1000, L501.9520, L500.4050 #### [facility] [address] [place], [address] Albumin/Globulin [Mass ratio] 1.2 {ratio} Normal 0.9-2.4 [facility] Comment on above: Order Comment: Order Date: 01/09/22 Order Info: 785-1 - CMP Order Info: - LIPID Order Info: 3015-11 - TSH Order Info: 7 - T4F Performed By: #### L 500.4100, L503.0105, L506.1000, L501.9520, L500.4050 #### [facility] [address] [place], [address] ALK P 115 U/L Normal 45-117 [facility] Comment on above: Order Comment: Order Date: 01/09/22 Order Info: 785- - CMP Order Info: - LIPID Order Info: 3015-11 - TSH Order Info: 7 - T4F Performed By: #### L 500.4100, L503.0105, L506.1000, L501.9520, L500.4050 #### [facility] [address] [place], [address] ALT [Catalytic activity/Vol] 55 U/L Normal 13-56 [facility] Comment on above: Order Comment: Order Date: 01/09/22 Order Info: 785-09 - CMP Order Info: - LIPID Order Info: 3015-11 - TSH Order Info: 7 - T4F Performed By: #### L 500.4100, L503.0105, L506.1000, L501.9520, L500.4050 #### [facility] [address] [place], [address] AST [Catalytic activity/Vol] 30 U/L Normal 15-37 [facility] Comment on above: Order Comment: Order Date: 01/09/22 Order Info: 785-1 - CMP Order Info: - LIPID Order Info: 3 - TSH Order Info: 3027 - T4F Performed By: #### L 500.4100, L503.0105, L506.1000, L501.9520, L500.4050 #### [facility] [address] [place], [address] Bilirubin [Mass/Vol] 0.90 mg/dL Normal 0.20-1.[address] [facility] Comment on above: Order Comment: Order Date: 01/09/22 Order Info: 0786-1 - CMP Order Info: [id number] - LIPID Order Info: 301-3 - TSH Order Info: 3024-7 - T4F Result Comment: For patients on eltrombopag therapy, use of Dimension [place] TBIL is not recommended. Performed By: #### L 500.4100, L503.0105, L506.1000, L501.9520, L500.4050 #### [facility] [address] [place], [address] BUN/CRE 21.5 RATIO High 10-20 [facility] Comment on above: Order Comment: Order Date: 01/09/22 Order Info: 0786- - CMP Order Info: - LIPID Order Info: 3015-3 - TSH Order Info: 3024-7 - T4F Performed By: #### L 500.4100, L503.0105, L506.1000, L501.9520, L500.4050 #### [facility] [address] [place], [address] CA,Total 8.9 mg/dL Normal 8.5-10.1 [facility] Comment on above: Order Comment: Order Date: 01/09/22 Order Info: 0786-1 - CMP Order Info: [id number] - LIPID Order Info: 3016-3 - TSH Order Info: 3024-7 - T4F Performed By: #### L 500.4100, L503.0105, L506.1000, L501.9520, L500.4050 #### [facility] [address] [place], [address] Chloride [Moles/Vol] 106 mmol/L Normal 98-[address] [facility] Comment on above: Order Comment: Order Date: 01/09/22 Order Info: 0786-1 - CMP Order Info: - LIPID Order Info: 3015-11 - TSH Order Info: 3024-03 - T4F Performed By: #### L 500.4100, L503.0105, L506.1000, L501.9520, L500.4050 #### [facility] [address] [place], [address] CO2 [Moles/Vol] 28.0 mmol/L Normal 21.0-32.0 [facility] Comment on above: Order Comment: Order Date: 01/09/22 Order Info: 785-09 - CMP Order Info: - LIPID Order Info: 3015-11 - TSH Order Info: 3024-03 - T4F Performed By: #### L 500.4100, L503.0105, L506.1000, L501.9520, L500.4050 #### [facility] [address] [place], [address] Creatinine [Mass/Vol] 0.70 mg/dL Normal 0.55-1.02 [facility] Comment on above: Order Comment: Order Date: 01/09/22 Order Info: 785-09 - CMP Order Info: - LIPID Order Info: 3015-11 - TSH Order Info: 3024-03 - T4F Result Comment: The validity of the calculated GFR GFRAA in patients over 70 years has not been determined. Clinical correlation is essential. Performed By: #### L 500.4100, L503.0105, L506.1000, L501.9520, L500.4050 #### [facility] [address] [place], [address] EST GFR - AA 112 mL/min Normal >60 [facility] Comment on above: Order Comment: Order Date: 01/09/22 Order Info: 1 - CMP Order Info: [id number] - LIPID Order Info: 3 - TSH Order Info: 3024-03 - T4F Result Comment: Afri can [place] GFR Calc Performed By: #### L 500.4100, L503.0105, L506.1000, L501.9520, L500.4050 #### [facility] [address] [place], [address] GAP 6 Normal 5-15 [facility] Comment on above: Order Comment: Order Date: 01/09/22 Order Info: 0786-1 - CMP Order Info: 93079-7 - LIPID Order Info: 301-3 - TSH Order Info: 7 - T4F Performed By: #### L 500.4100, L503.0105, L506.1000, L501.9520, L500.4050 #### [facility] [address] [place], [address] GFR/1.73 sq M.predicted among non-blacks MDRD (S/P/Bld) [Vol rate/Area] 92 mL/min/{1.73_m2} Normal >60 [facility] Comment on above: Order Comment: Order Date: 01/09/22 Order Info: 785- - CMP Order Info: [id number] - LIPID Order Info: 3 - TSH Order Info: 7 - T4F Result Comment: Non- GFR Calc Performed By: #### L 500.4100, L503.0105, L506.1000, L501.9520, L500.4050 #### [facility] [address] [place], [address] Globulin (S) [Mass/Vol] 3.4 g/dL Normal 2.2-4.[address] [facility] Comment on above: Order Comment: Order Date: 01/09/22 Order Info: 785-1 - CMP Order Info: [id number] - LIPID Order Info: 3013 - TSH Order Info: 30247 - T4F Performed By: #### L 500.4100, L503.0105, L506.1000, L501.9520, L500.4050 #### [facility] [address] [place], [address] Glucose [Mass/Vol] 89 mg/dL Normal 74-106 [facility] Comment on above: Order Comment: Order Date: 01/09/22 Order Info: 785-1 - CMP Order Info: [id number] - LIPID Order Info: 3015-3 - TSH Order Info: 3024-7 - T4F Performed By: #### L 500.4100, L503.0105, L506.1000, L501.9520, L500.4050 #### [facility] [address] [place], [address] Potassium [Moles/Vol] 3.8 mmol/L Normal 3.5-5.1 [facility] Comment on above: Order Comment: Order Date: 01/09/22 Order Info: 785-1 - CMP Order Info: [id number] - LIPID Order Info: 3 - TSH Order Info: 3024-7 - T4F Performed By: #### L 500.4100, L503.0105, L506.1000, L501.9520, L500.4050 #### [facility] [address] [place], [address] Sodium [Moles/Vol] 140 mmol/L Normal 136-145 [facility] Comment on above: Order Comment: Order Date: 01/09/22 Order Info: 785- - CMP Order Info: [id number] - LIPID Order Info: 3016-3 - TSH Order Info: 3024-7 - T4F Performed By: #### L 500.4100, L503.0105, L506.1000, L501.9520, L500.4050 #### [facility] [address] [place], [address] T PROT 7.4 g/dL Normal 6.4-8.2 [facility] Comment on above: Order Comment: Order Date: 01/09/22 Order Info: 0786-1 - CMP Order Info: [id number] - LIPID Order Info: 3016-3 - TSH Order Info: 3024-7 - T4F Performed By: #### L 500.4100, L503.0105, L506.1000, L501.9520, L500.4050 #### [facility] [address] [place], [address] Urea nitrogen [Mass/Vol] 15 mg/dL Normal 7-18 [facility] Comment on above: Order Comment: Order Date: 01/09/22 Order Info: 0786-1 - CMP Order Info: [id number] - LIPID Order Info: 301-3 - TSH Order Info: 3024-03 - T4F Performed By: #### L 500.4100, L503.0105, L506.1000, L501.9520, L500.4050 #### [facility] [address] [place], [address] Lipid Profileon 01-09-2022 Cholesterol [Mass/Vol] 266 mg/dL High 200 [facility] Comment on above: Order Comment: Order Date: 01/09/22 Order Info: 785- - CMP Order Info: [id number] - LIPID Order Info: 3 - TSH Order Info: 3024-03 - T4F Result Comment: <200 mg/dL Desirable 200-240 mg/dL Borderline >240 mg/dL High Risk Performed By: #### L 500.4100, L503.0105, L506.1000, L501.9520, L500.4050 #### [facility] [address] [place], [address] Cholesterol in HDL [Mass/Vol] 73 mg/dL Normal [facility] Comment on above: Order Comment: Order Date: 01/09/22 Order Info: 0786-1 - CMP Order Info: [id number] - LIPID Order Info: 3013 - TSH Order Info: 7 - T4F Result Comment: The drugs N-Acetylcysteine and Metamizole may falsely depress this assay. Reference Range HDL <40 mg/dL Low HDL Cholesterol HDL >or= 60 mg/dL High HDL Cholesterol Performed By: #### L 500.4100, L503.0105, L506.1000, L501.9520, L500.4050 #### [facility] [address] [place], [address] Cholesterol in LDL [Mass/Vol] 175 mg/dL High 0-130 [facility] Comment on above: Order Comment: Order Date: 01/09/22 Order Info: 0786-1 - CMP Order Info: [id number] - LIPID Order Info: 3015-3 - TSH Order Info: 7 - T4F Performed By: #### L 500.4100, L503.0105, L506.1000, L501.9520, L500.4050 #### [facility] [address] [place], [address] Cholesterol in VLDL [Mass/Vol] 18 mg/dL Normal 5-40 [facility] Comment on above: Order Comment: Order Date: 01/09/22 Order Info: 07- - CMP Order Info: [id number] - LIPID Order Info: 3 - TSH Order Info: 7 - T4F Performed By: #### L 500.4100, L503.0105, L506.1000, L501.9520, L500.4050 #### [facility] [address] [place], [address] Triglyceride [Mass/Vol] 88 mg/dL Normal [facility] Comment on above: Order Comment: Order Date: 01/09/22 Order Info: 0786- - CMP Order Info: [id number] - LIPID Order Info: 3 - TSH Order Info: 302-7 - T4F Result Comment: The drugs N-Acetylcysteine and Metamizole may falsely depress this assay. Serum Triglycerides Reference Interval Normal <150 mg/dL Borderline high 150 - 199 mg/dL High 200 - 499 mg/dL Very High > or = 500 mg/dL Performed By: #### L 500.4100, L503.0105, L506.1000, L501.9520, L500.4050 #### [facility] [address] [place], [address] T4 Free Directon 01-09-2022 T4 FREE DIRECT 1.05 ng/dL Normal 0.76-1.46 [facility] Comment on above: Order Comment: Order Date: 01/09/22 Order Info: 0786-1 - CMP Order Info: [id number] - LIPID Order Info: 3016-3 - TSH Order Info: 7 - T4F Performed By: #### L 506.0400 #### [facility] [address] [place], [address] Thyroid Stim Hormone (TSH)on 01-09-2022 TSH 0.73 uIU/mL Normal 0.358-3.74 [facility] Comment on above: Order Comment: Order Date: 01/09/22 Order Info: 0786-1 - CMP Order Info: [id number] - LIPID Order Info: 3013 - TSH Order Info: 7 - T4F Performed By: #### L 500.4100, L503.0105, L506.1000, L501.9520, L500.4050 #### [facility] [address] [place], [address] Vitamin B12on 01-09-2022 Cobalamin (Vitamin B12) [Mass/Vol] 554 pg/mL Normal 211-911 [facility] Comment on above: Order Comment: Order Date: 01/09/22 Order Info: 2132-9 - B12 Order Info: 30293-8 - VITD25 Performed By: #### L 500.4100, L503.0105, L506.1000, L501.9520, L500.4050 #### [facility] [address] [place], [address] Vitamin D,25 Hydroxyon 01-09 Vitamin D 25-OH 37.4 ng/mL Normal [facility] Comment on above: Order Comment: Order Date: 01/09/22 Order Info: 2132-9 - B12 Order Info: [id number] - VITD25 Result Comment: Yolanda min D 25(OH) Status Range Deficiency <20 ng/mL (50nmol/L) Insufficiency 20 - 30 ng/mL (50 - 75 nmol/L) Sufficiency 30 - 100 ng/mL (75 - 250 nmol/L) Toxicity >100 ng/mL (>250 nmol/L) Performed By: #### L 500.4100, L503.0105, L506.1000, L501.9520, L500.4050 #### [facility] [address] [place], [address] Phone [employer] 04-20-2021 Phone MsV2contact - From: XIMENA MCCARTNEY To: Eran Car MD --- [facility] ([facility]) Sent: 04/20/2021 01:07 p.m. EDT Subject: Eran Car MD --- [facility]: Covid19 test results Thank you for your message. It has been successfully sent to the appropriate care team. Rayne, Attached are the covid19 test results Missing Attachment Ximena [email or web address].pdf can be viewed in source system [facility] Patient Letteron 04-19-2021 Patient Letter April 19, 2021 XIMENA MCCARTNEY [address] [address] To Whom It May Concern: The above-named patient is positive for COVID antibodies and has a history of COVID in December 2020. If you have further questions regarding this patient?s health status, please call our office. OMA CAR MD [facility] Phone [employer] 04-19-2021 Phone [employer]contact - From: JOSEP PEDRO, OMA Moe To: Merari Bennett MA; Cc: [facility]; Sent: 04/16/2021 13:06:35 EDT Subject: covid antibody results 1) Advise pt is POSITIVE FOR COVID ANTIBODIES. 2) still waiting for results of their covid antigen testing from [facility]. Once we receive that, we can write a letter on their behalf stating that they tested negative for covid and have antibodies. This is for their upcoming trip on Sunday. They can bulk picker the letter. From: Merari Bennett MA To: OMA CAR MD; Sent: 04/19/2021 09:34:32 EDT Subject: RE: covid antibody results spoke with pt and she is very upset that you never stated you needed the antigen results from [facility] (which she corrected me and stated it's actually [facility] they went to) in order to write this letter. She states she got the test done Sunday and it takes up to 72 hours to get the results back. I then inquired that she may not even have the results back by the time her flight takes off, in which she replied that the airline will test right there on the spot. I reiterated multiple times that this letter will not be written til all results are returned, as stated in your office note. Pt then hung up on me. From: OMA CAR MD HH To: Merari Bennett MA; Sent: 04/19/2021 10:28:50 EDT Subject: RE: covid antibody results It's ok to write a letter statin) She is POSITIVE for covid antibodies and has had a h/o covid. 2) attach the results of her antibody testing to the letter. 3) The same applies for her Wan. letter typed, printed and filed for pickup. Normal [facility] Phone Msg - From: XIMENA MCCARTNEY To: [facility] Sent: 04/19/2021 10:07 a.m. EDT Subject: RE: Eran Car MD --- [facility]: letter needed for travel Thank you for your message. It has been successfully sent to the appropriate care team. Good morning, I just checked with the [facility] and they received our sample for the PCR test. If I get the results back tomorrow morning will Dr. Josep write the letter tomorrow? If I get it later today I will forward it in this portal. Best regards, Ximena Mccartney From: Merari Bennett MA ([facility]) To: XIMENA MCCARTNEY Sent: 04/19/2021 08:18:21 EDT Subject: RE: Eran Car MD --- [facility]: letter needed for travel ??? Humberto Bueno. It looks like Dr. Car was waiting for the results from [facility] first before writing the letter. Usually they fax us some kind of paperwork, but we have not received anything. Once we get those results, we can type the letter for you. ??? Thanks. GUERO Gage ? From: XIMENA MCCARTNEY To: Eran Car MD --- [facility] ([facility]) Sent: 04/18/2021 11:10 p.m. EDT Subject: Eran Car MD --- [facility]: letter needed for travel Thank you for your message. It has been successfully sent to the appropriate care team. Rayne Car, I wanted to remind you about the letter that we need to travel to [facility]. The following information should be included in the letter. Ximena Mccartney 1975 [place] [address] 1965 Carlyn Mccartney [address] [place] [address] 04/28/1958 It needs to specify that we were treated for covid19 in December, and our current blood-work for antibody? The lab report should be attached to the letter. I can pickup the letter at the office on Sunday the since we leave the country on Sunday the . Thank you very much Ximena Mccartney Normal [facility] Phone Msg - From: Merari Bennett MA ([facility]) To: XIMENA MCCARTNEY Sent: 04/19/2021 10:22:53 EDT Subject: RE: Eran Car MD --- [facility]: letter needed for travel Yes, as soon as we have the results, he will write the letter. Our fax number is [phone] if that expedites the process at all. From: XIMENA MCCARTNEY To: [facility] Sent: 04/19/2021 10:07 a.m. EDT Subject: RE: Eran Car MD --- [facility]: letter needed for travel Thank you for your message. It has been successfully sent to the appropriate care team. Good morning, I just checked with the [facility] ([facility] and they received our sample for the PCR test. If I get the results back tomorrow morning will Dr. Car write the letter tomorrow? If I get it later today I will forward it in this portal. Best regards, Ximena Mccartney From: Merari Bennett MA ([facility]) To: XIMENA MCCARTNEY Sent: 04/19/2021 08:18:21 EDT Subject: RE: Eran Car MD --- [facility]: letter needed for travel Humberto Bueno. It looks like Dr. Car was waiting for the results from [facility] first before writing the letter. Usually they fax us some kind of paperwork, but we have not received anything. Once we get those results, we can type the letter for you. Thanks. GUERO Gage From: XIMENA MCCARTNEY To: Eran Car MD --- [facility] ([facility]) Sent: 04/18/2021 11:10 p.m. EDT Subject: Eran Car MD --- [facility]: letter needed for travel Thank you for your message. It has been successfully sent to the appropriate care team. Rayne Car, I wanted to remind you about the letter that we need to travel to [facility]. The following information should be included in the letter. Ximena Mccartney 1975 [place] [id number] 1965 Masonjoelle Mccartney [address] [place] [address] 04/28/1958 It needs to specify that we were treated for covid19 in December, and our current blood-work for antibody? The lab report should be attached to the letter. I can pickup the letter at the office on Sunday since we leave the country on Sunday. Thank you very much Ximena Mccartney [facility] Phone Msg - From: XIMENA MCCARTNEY To: Erna Car MD --- [facility] ([facility]) Sent: 04/18/2021 11:10 p.m. EDT Subject: Eran Car MD --- [facility]: letter needed for travel Thank you for your message. It has been successfully sent to the appropriate care team. Rayne Car, I wanted to remind you about the letter that [place] need to [place] [facility] [facility] The following information should be included in the letter. Ximena Mccartney [address] [address] 1965 Carlyn Mccartney [address] [place] [address] 04/28/1958 It needs to specify that we were treated for covid19 in December, and our current blood-work for antibody? The lab report should be attached to the letter. I can pickup the letter at the office on Sunday since we leave the country on Sunday. Thank you very much Ximena Mccartney [facility] Phone Msg - From: Merari Bennett MA ([facility]) To: XIMENA MCCARTNEY Sent: 04/19/2021 08:18:21 EDT Subject: RE: Eran Car MD --- [facility]: letter needed for travel Hi Ximena. It looks like Dr. Car was waiting for the results from [facility] first before writing the letter. Usually they fax us some kind of paperwork, but we have not received anything. Once we get those results, we can type the letter for you. Thanks. GUERO Gage From: XIMENA MCCARTNEY To: Eran Car MD --- [facility] ([facility]) Sent: 04/18/2021 11:10 p.m. EDT Subject: Eran Car MD --- [facility]: letter needed for travel Thank you for your message. It has been successfully sent to the appropriate care team. Heltatiana Car, I wanted to remind you about the letter that we need to travel to [facility]. The following information should be included in the letter. Ximena Mccartney [address] [address] 1965 Juan Carlosiraida Travsandhya [address] [place] [address] 04/28/1958 It needs to specify that we were treated for covid19 in December, and our current blood-work for antibody? The lab report should be attached to the letter. I can pickup the letter at the office on Sunday the since we leave the country on Sunday the . Thank you very much Ximena Mccartney [facility] Amb Office-Progress Notes-Pr ovideron 04-15-2021 Amb Office-Progress Notes-Provider Patient: XIMENA MCCARTNEY Age: 56 years Sex: Female : 1965 Associated Diagnoses: Encounter for laboratory testing for COVID-19 virus; Close exposure to COVID-19 virus Author: JOSEP PEDRO, OMA Moe Chief Complaint 04/15/2021 10:33 EDT pt needs covid test to travel and wants covid antibody test History of Present Illness 1) covid screening - pt. is having covid testing at [facility] on Sunday. Needs antibody testing as well. Had covid exposure/sxs in December. Is asxic now. colon: 11/19 - [address] Weiner. Depression Screening Scores Initial Depression Screen Score: 0 (04/15/21 10:33:00) Falls Risk Assessment Is the patient ambulatory (mobile): Yes (04/15/21 10:33:00) Have you had a fall within the past: No (04/15/21 10:33:00) Have you had 2 or more falls in the past: No (04/15/21 10:33:00) Health Status Allergies: Allergic Reactions (Selected) No Known Medication Allergies Current medications: (Selected) Prescriptions Prescribed Azithromycin 5 Day Dose Pack 250 mg oral tablet: 250 mg = 1 tabs, ORAL, DAILY, for 5 days, as directed on package labeling, 6 tabs, 0 Refill(s) Medrol Dosepak 4 mg oral tablet: 1 packets, ORAL, DAILY, for 6 days, as directed on package labeling, 21 tabs, 0 Refill(s) Discontinued Zithromax Z-Kristian 250 mg oral tablet: 1 packets, ORAL, ONCE, for 5 days, as directed on package labeling, 6 tabs, 0 Refill(s) benzonatate 200 mg oral capsule: 200 mg = 1 caps, ORAL, TID, for 10 days, PRN: as needed for cough, 30 caps, 0 Refill(s) Problem list. Histories Family History.Procedure history.Social History Physical Examination VS/Measurements Peripheral Pulse Rate: 59 bpm Low (04/15/21 10:33:00) Systolic Blood Pressure: 102 mmHg (04/15/21 10:33:00) Diastolic Blood Pressure: 64 mmHg (04/15/21 10:33:00) Height/Length Measured: 160 cm (04/15/21 10:33:00) Weight Measured: 70 kg (04/15/21 10:33:00) Body Mass Index Measured: 27.34 kg/m2 (04/15/21 10:33:00) General: Alert and oriented, No acute distress. Neurologic: Alert, Oriented. Cognition and Speech: Oriented, Speech clear and coherent. Impression and Plan Diagnosis Encounter for laboratory testing for COVID-19 virus - [id number] Z20.822, Medical. Close exposure to COVID-19 virus - [id number] Z20.822, Medical. Orders Orders Laboratory: COVID Antibody Test (Order): ROUTINE, 04/15/2021, Order for future visit, Dx: Close exposure to COVID-19 virus. Dx/Order Association Plan: Diagnosis: Close exposure to COVID-19 virus Comment: test as below for antibodies. [facility] to test for antigen. Diagnosis: Encounter for laboratory testing for COVID-19 virus Comment: see above. Rx below for pt. to take w/ him to [facility] on travel. We will write a letter certifying testing and results once all results return. Pt. leaves 04/20/21. Additional Orders: Comment: Ordered: Azithromycin 5 Day Dose Pack 250 mg oral tablet,250 mg 1 tabs, ORAL, DAILY, as directed on package labeling, 6 tabs, Date: 04/15/2021 11:09:00 EDT, JENN MAKAH #[id number], Tablet, 1 tabs ORAL DAILY,x5 days,Instr:as directed on package labeling Ordered: Medrol Dosepak 4 mg oral tablet,1 packets, ORAL, DAILY, as directed on package labeling, 21 tabs, Date: 04/15/2021 11:09:00 EDT, JENN MAKAH #[id number], Tablet, 1 packets ORAL DAILY,x6 days,Instr:as directed on package labeling . [facility] COVID Antibody Teston 2020 SARS-CoV-2 (COVID-19) RNA CAROL+probe Ql (Unsp spec) Reactive Abnormal [facility] Comment on above: Order Comment: Order ed on [facility]# [id number] Result Comment: ? CO V2T assay is a chemiluminescent immunoassay intended for qualitative detection of total antibodies (including IgG and IgM) to SARS-CoV-2 ? Assay should not be used to diagnose or exclude acute infection. Results are not intended to be used as the sole basis for patient management decisions. Test results should be interpreted in conjunction with clinical observations, patient history, epidemiological information, and other laboratory findings. ? Patient specimens may be nonreactive if collected during the early (pre-seroconversion) phase of illness or due to a decline in titer over time. In addition, the immune response may be depressed in the elderly, immunocompromised, or immunosuppressed patients. ? The performance of the assay has not been established with cord blood, specimens, cadaver specimens, or body fluids other than serum or plasma. ? A reactive test result does not exclude past or present infections by other coronaviruses, such as SARS-CoV-1, MERS-CoV, HKU1, 229E, NL63, or OC43. ? It is not known at this time if the presence of antibodies to SARS-CoV-2 confers immunity to re-infection. ? This test should not be used for donor screening. Additional Information Testing was performed using the ADVIA Centaur SARS-CoV-2 Total (COV2T) product (Siemens) using which has received Emergency Use Authorization (EUA) by the U.S. Food and Drug Administration Fact sheets for (EUA) assay can be found at the following links: For Healthcare Providers: https://www.fda.gov/media/952223/download For Patients: https://www.fda.gov/media/805224/download Performed By: #### C [id number] ####[facility] [id number] [id number] Medical Director: Duke Morales MD Phone Msgobere 04-04-2021 Phone Msg - From: Laura Bryan To: OMA CAR MD; Sent: 04/04/2021 12:10:59 EDT Subject: antibody test pt called and needs a covid antibody test done she is coming in on the 13 on the month but they are leaving the country on the 18 and would like it done before appt please call and let them know it is in the system cb- [phone] From: OMA CAR MD To: Russell Walls; Cc: [facility]; Sent: 04/04/2021 12:28:58 EDT Subject: FW: antibody test Virtual visit. Please clarify that they need covid antigen or antibody testing? pt advised. we can draw antibody testing in the office on appt. and they can have the results on paper prior to traveling. [facility] Phone Msgon 06-08-2020 Phone Msg - From: Russell Walls To: JOSEP PEDRO, TOMER; Sent: 06/08/2020 15:55:26 EDT Subject: Phone call Pt called the back line asking to speak to you. Stated it was personal and no message was needed. Last seen 10/14/18. [phone] [facility] CNOVon 10-15-2018 CNOV Office Visit (OBGYBD ) XIMENA MCCARTNEY ([id number]) 1965 F Date Time Provider Department 10/15/18 3:00 PM ELIDA JOHN OBGYBD During your visit today, we recorded the following information about you: Blood pressure Weight Height 102/60 68.5 kg 1.615 m Lacey Dupont Ma 10/15/2018 4:16 PM Signed Banquet Cook offered: Patient declines. 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 BP 102/60 Ht 5' 3.58 (1.615 m) Wt 151 lb (68.5 kg) LMP 08/17/2009 BMI 26.26 kg/m? Current Outpatient Prescriptions on File Prior to Visit: MULTI-VITAMIN ORAL Take by mouth. PAST MEDICAL HISTORY Diagnosis Date - Borderline high cholesterol - PMH - PAST MEDICAL HISTORY OF melonoma PAST SURGICAL HISTORY Procedure Laterality Date - DANDC, DIAG AND/OR THERAPEUTIC Dilation AND curettage - FISSURE;SPHINCTEROTOMY /ANAL - REMOVAL GALLBLADDER FAMILY HISTORY Problem Relation Age of Onset - Cancer Mother Uterine age 38 - Stroke Father Social History Marital status: Spouse name: Years of education: Number of children: Social History Main Topics Smoking status: Former Smoker Packs/day: 0.00 Years: 0.00 Smokeless tobacco: Never Used Comment: smoked at age 17 but quit after 1 year, smoked intermittently Alcohol use: Yes Comment: 1 glass wine occasionally Drug use: No Sexual activity: Yes Partners with: Male Comment: General Health: Good Gynecological Complaints: None Menopausal Symptoms: None PHYSICAL EXAM General appearance: Well appearing, alert, in no acute distress, well-hydrated, well nourished. Thyroid: Not enlarged Breasts: No lumps/bumps, No suspicious areas, No skin/nipple changes or No LN Axilla: Normal Abdomen: Soft, Nontender, Not distended and No masses palpable Pelvic: Vulva: Normal Vagina: Normal Cervix: normal, no lesions and Pap taken AND Digene Uterus: normal size and non tender Adnexa: Normal, no masses palpable and non tender ASSESSMENT: Normal annual Controlled Area Checker exam PLAN: Return 1 year Mammogram in [facility] Elida John MD Referring Provider: MILAGRO OEDLL (HIST) [[id number]] Allergies As of Date: 10/15/2018 Noted Allergy Reaction DILAUDID (HYDROMORPHONE (BULK)) 12/09/2014 11 - Vomiting PERCOCET (OXYCODONE-ACETAMINOPH EN)12/09/2014 11 - Vomiting VICODIN (HYDROCODONE-ACETAMINO PHE*12/09/2014 11 - Vomiting Date Reviewed: 10/15/2018 Reviewed by: Elida John - Fully Assessed Reason for Visit: Yearly Exam [187] Primary Visit Diagnosis:Encounter for gynecological examination without abnormal finding [Z01.419] Other Visit Diagnoses:Special screening examination for human papillomavirus (HPV) [Z11.51] Pap smear for cervical cancer screening [Z12.4] Screening breast examination [Z12.31] Order(s):PAP FLUID CERVICAL SCREENING [1381113] Order #: [id number] ABEL SCREENING [[id number]] Order #: [id number] FUTURE Prescriptions as of 10/15/2018 Sig: MULTI-VITAMIN ORAL Take by mouth. Problem List As Of Date 10/15/2018 Noted Resolved ANAL AND RECTAL ABSCESS [K61.2] INVALID FOR* Abnormal uterine bleeding (AUB) [N93.9] INVALID FOR* Screening for colon cancer [Z12.11] INVALID FOR* More... Medications Discontinued During This Encounter peg 3350-Electrolytes (GOLYTELY) 236* 1 Roldan* 0 08/07/2017 10/15/2018 Sig: Take 4,000 mL by mouth one time only for 1 dose. Refer to printed prep instructions from your doctor. Disc: Reason for discontinue is not on file. loperamide (IMODIUM) 2 mg cap(s) 2 ca* 0 08/07/2017 10/15/2018 Sig: Take 2 capsules by mouth one time only for 1 dose. Take one hour after last bowel movement. Disc: Reason for discontinue is not on file. Encounter Status:Closed by ELIDA JOHN MD on 10/15/18 Normal [facility] CYTOLOGYon 10-15-2018 CYTOLOGY ADDITIONAL PROCEDURES PRESENT Specimen originated from [facility] Specimen #: [id number] Submitting Physician: ELIDA JOHN ([id number]) SPECIMEN SUBMITTED A: CERVICAL, SCREENING, FLUID _ FINAL DIAGNOSIS A. CERVICAL, SCREENING, FLUID Satisfactory for interpretation. Negative for intraepithelial lesion or malignancy. Atrophic specimen. This specimen has been analyzed by the Systems IntegrationPrep Imaging System, an automated imaging and review system, which assists the laboratory in evaluating cells on ThinPrep Pap tests. Following automated imaging, selected weinstein from every slide are reviewed by a poultry farmer. MATTHIEU Salamanca(ASCP) (Electronic Signature) _ ADDITIONAL PROCEDURE(S) HUMAN PAPILLOMA VIRUS Date Ordered: 10/16/2018 Date Reported: 10/17/2018 Procedure Results and Interpretation Negative for HPV DNA high risk type 16 by PCR. Negative for HPV DNA high risk type 18 by PCR. Negative for HPV DNA high risk types: 31,33,35,39,45,51,52,5 6,58,59,66,68 by PCR. This test was developed and its performance characteristics determined by [facility]'s [facility] Pathology [facility] [place] ([facility]). It has not been cleared or approved by the FDA. ED [facility] is regulated under CLIA as qualified to perform high-complexity testing. This test is used for clinical purposes. It should not be regarded as investigational or for research. CLINICAL DATA ROUTINE EXAM, HPV Testing: Yes, automatic HPV patients over 30 Date of Last Menstrual Period: Postmenopausal STAINS A: CERVICAL, SCREENING, FLUID THIN PREP HARDNESS TESTER Silvana Sanchez M.D., Section Chief Date of Report: 10/18/2018 Date of Procedure: 10/15/2018 Date of Receipt: 10/16/2018 Submitted by: ELIDA JOHN ([id number]) Location: [facility] Diagnostic interpretation performed at [facility], [address] [place] [address]. The Pap Smear is a screening test for cervical cancer. False negative results occur with all screening tests, emphasizing the need for rescreening at recommended intervals, and clinical correlation. [facility] HPV w/Genotypeon 10-15-2018 HPV HighRisk Other Negative for HPV DNA high risk types: 31,33,35,39,45,51,52,5 6,58,59,66,68 by PCR. Normal [facility] Comment on above: Result Comment: This test was developed and its performance characteristics determined by [facility] Path[facility] [place] ([facility]). It has not been cleared or approved by the FDA. [facility] is regulated under CLIA as qualified to perform high-complexity testing. This test is used for clinical purposes. It should not be regarded as investigational or for research. Performed By: #### H PVHRR #### [facility] [employer] [address] [place] [address] HPV HighRisk Type 16 Negative Normal [facility] Comment on above: Performed By: #### H PVHRR #### [facility] [employer] [address] [id number] HPV HighRisk Type 18 Negative Normal [facility] Comment on above: Performed By: #### H PVHRR #### [id number] [place] [id number] PROGRESSon 10-15-2018 Protein mass conc HNO ID: [id number] Author: Elida John Service: (none) Author Type: Physician Type: Progress Notes Filed: 10/15/2018 4:16 PM Note Text: Ximena Mccartney is an 53 year old woman 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 BP 102/60 Ht 5' 3.58 (1.615 m) Wt 151 lb (68.5 kg) LMP 08/17/2009 BMI 26.26 kg/m? Current Outpatient Prescriptions on File Prior to Visit: MULTI-VITAMIN ORAL Take by mouth. PAST MEDICAL HISTORY Diagnosis Date - Borderline high cholesterol - PMH - PAST MEDICAL HISTORY OF melonoma PAST SURGICAL HISTORY Procedure Laterality Date - DANDC, DIAG AND/OR THERAPEUTIC Dilation AND curettage - FISSURE;SPHINCTEROTOMY /ANAL - REMOVAL GALLBLADDER FAMILY HISTORY Problem Relation Age of Onset - Cancer Mother Uterine age 38 - Stroke Father Social History Marital status: Spouse name: Years of education: Number of children: Social History Main Topics Smoking status: Former Smoker Packs/day: 0.00 Years: 0.00 Smokeless tobacco: Never Used Comment: smoked at age 17 but quit after 1 year, smoked intermittently Alcohol use: Yes Comment: 1 glass wine occasionally Drug use: No Sexual activity: Yes Partners with: Male Comment: General Health: Good Gynecological Complaints: None Menopausal Symptoms: None PHYSICAL EXAM General appearance: Well appearing, alert, in no acute distress, well-hydrated, well nourished. Thyroid: Not enlarged Breasts: No lumps/bumps, No suspicious areas, No skin/nipple changes or No LN Axilla: Normal Abdomen: Soft, Nontender, Not distended and No masses palpable Pelvic: Vulva: Normal Vagina: Normal Cervix: normal, no lesions and Pap taken AND Digene Uterus: normal size and non tender Adnexa: Normal, no masses palpable and non tender ASSESSMENT: Normal annual Controlled Area Checker exam PLAN: Return 1 year Mammogram in Aug Elida John MD Normal [facility] Protein mass conc HNO ID: [id number] Author: Lacey Dupont Ma Service: (none) Author Type: (none) Type: Progress Notes Filed: 10/15/2018 4:16 PM Note Text: Banquet Cook offered: Patient declines. LAST PAP: 12/11/13 LAST MAMMOGRAM:10/10/17 Normal [facility] CNCOon 08-09-2018 CNCO HNO ID: [id number] Author: Mammography Coordinator Service: (none) Author Type: Physician Type: Letter Filed: 08/12/2018 11:32 PM Note Text: August 09, 2018 PID: [id number] Ximena Mccartney [address] [place] [address] Dear Ms. Mccartney, We are pleased to inform you that the results of your recent breast imaging exam on 08/09/2018 are normal. Early detection of cancer is very important. We also understand recommendations regarding breast cancer screening are controversial. Please discuss with your primary care provider which strategy is best for you and whether a mammogram is right for you. Your imaging studies and report will be kept on file at [facility] as part of your permanent medical record and are available for your continuing care. Thank you for allowing us to help in meeting your health care needs. Sincerely, Dr. Jewell Interpreting Radiologist [facility] (Normal over 40) Normal [facility] ABEL SCREENINGon 08-09-2018 ABEL SCREENING * * *Final Report* * * DATE OF EXAM: Aug 09 2018 9:34AM BETI 0581 - [facility] SCREENING / PROCEDURE REASON: Visit for screening mammogram * * * * Physician Interpretation * * * * RESULT: #[id number] - [facility] SCREENING BILATERAL DIGITAL SCREENING MAMMOGRAM WITH CAD: 08/09/2018 HISTORY: Visit For Screening Mammogram /Screening Mammogram - patient reports NO symptoms. RESULT: TECHNIQUE: The study was acquired using full field digital technology and interpreted from soft copy. Current study was also evaluated with a Computer Aided Detection (CAD). Comparison is made to exams dated: 04/25/2017 mammogram - [facility], 04/27/2015 mammogram - [facility], 02/24/2014 mammogram, 01/14/2013 mammogram, and 12/27/2011 mammogram - [facility]. There are scattered fibroglandular elements in both breasts. There is a biopsy clip in the left breast. No significant masses, calcifications, or other findings are seen in either breast. There has been no significant interval change. IMPRESSION: There is no mammographic evidence of malignancy. A 1 year screening mammogram is recommended. The exam was reviewed by a staff physician. Becky Valdivia M.D. ,[facility]: 8 09:42:45 Security Systems Engineer(s): RT Anton(R)(M), [facility] letter sent: Normal over 40 Mammogram BI-RADS: 1 Negative Multiple national specialty organizations have released breast cancer screening guidelines for women at average risk for developing breast cancer - guidelines that are based on both evidence and opinion, yet differ on when to start and how often to screen for breast cancer. With representation from Breast Imaging, Internal Medicine, Women's Health, Family Medicine, and Medical/Surgical Oncology, the [facility] has carefully reviewed the data and reached the following consensus: 1) All women should engage in shared decision-making with their providers to decide when to start and how often to screen; 2) All women should have the opportunity to start screening mammography at age 40; 3) For women ages 45-55, we recommend annual screening mammograms; 4) For women ages 55 and over, we support both the transition from an annual to a biennial interval if this aligns more with patient's values and preferences, or continuation with annual screening; 5) All women should discuss with their providers when to stop screening mammograms. Certified Hand Therapist: Jose Alejandro Transcribe Date/Time: Aug 09 2018 9:19A Dictated by: MARINO VALDIVIA MD This examination was interpreted and the report reviewed and electronically signed by: BECKY GUY MD on Aug 09 2018 9:42AM EST [id number] Normal [facility] Vital Signs Date Time Vital Sign Value Performing Clinician Faci chantal 04-24-2025 14:06-0400 Body temperature 97.8 [degF] Dr. Vladislav Maldonado MD Work Phone: [phone] [place] [address] 04-24-2025 14:06-0400 Diastolic blood pressure 70 mm[Hg] Dr. Vladislav Maldonado MD Work Phone: [phone] [place] [address] 04-24-2025 14:06-0400 Heart rate 77 /min Dr. Vladislav Maldonado MD Work Phone: [phone] [place] [address] 04-24-2025 14:06-0400 Respiratory rate 18 /min Dr. Vladislav Maldonado MD Work Phone: [phone] [place] [address] 04-24-2025 14:06-0400 SaO2% (BldA) [Mass fraction] 100 % Dr. Vladislav Maldonado MD Work Phone: [facility] 04-24-2025 14:06-0400 Systolic blood pressure 105 mm[Hg] Dr. Vladislav Maldonado MD Work Phone: [facility] 04-24-2025 12:08-0400 Body height 160.[address] Vladislav Maldonado MD Work Phone: [phone] [place] [address] 04-24-2025 12:08-0400 Body mass index (BMI) [Ratio] 27.6 kg/m2 Dr. Vladislav Maldonado MD Work Phone: [facility] 04-24-2025 12:08-0400 Body weight 70.[address] Vladislav Maldonado MD Work Phone: [phone] [place] [address] 09-01-2022 13:00-0500 Body height 160.02 cm No Primary Care Physician [facility] 09-01-2022 13:00-0500 Body mass index (BMI) [Ratio] 26.6 kg/m2 No Primary Care Physician [facility] 09-01-2022 13:00-0500 Body weight 68.15 kg No Primary Care Physician [facility] 09-01-2022 13:00-0500 Diastolic blood pressure 69 mm[Hg] No Primary Care Physician [facility] 09-01-2022 13:00-0500 Systolic blood pressure 108 mm[Hg] No Primary Care Physician [facility] Encounters Encounter Date Encounter Type Care Provider Facility Start: 04-24-2025 Admission to [facility] Dr. Derik Keane MD [facility] Work Phone: Start: 04-24-[address] Carlos Maldonado MD Work Phone: [facility] Start: 09-19-2022 End: 09-19-2022 ambulatory No Primary Care Physician [facility] Work Phone: Start: 09-19-2022 End: 09-19-2022 Patient encounter procedure No Primary Care Physician [facility]-Outpatient Bone Densitometry Start: 09-01-2022 Encounter for gynecological examination (general) (routine) without abnormal findings Maryanapepito Jernigan [facility] Start: 09-01-2022 End: 09-01-2022 ambulatory No Primary Care Physician Facility:[facility] Start: 09-01-2022 End: 09-01-2022 ambulatory No Primary Care Physician [facility] Work Phone: Start: 09-01-2022 End: 09-01-2022 Patient encounter procedure No Primary Care Physician [facility] Start: 07-10-2022 End: 07-10-2022 ambulatory Carlos Maldonado [facility] Work Phone: Start: 07-10-2022 End: 07-10-2022 Patient encounter procedure [facility] Start: 01-09-2022 End: 01-09-2022 ambulatory Carlos Maldonado Facility:[facility] Start: 10-15-2018 End: 10-16-2018 Patient encounter procedure ELIDA JOHN [facility] Start: 10-14-2018 End: 10-15-2018 Patient encounter procedure OMA CAR Facility:[id number] Start: 10-02-2018 Patient encounter procedure OMA CAR Facility:[id number] Start: 10-01-2018 End: 10-02-2018 Patient encounter procedure OMA CAR Facility:[id number] Start: 08-09-2018 End: 08-09-2018 Patient encounter procedure ELIDA JOHN [facility] Procedures Date Procedure Procedure Detail Performing Clinician Start: 04-24-2025 Urnls dip stick/tablet reagent auto microscopy Dr. Vladislav Maldonado MD Work Phone: Start: 04-24-[address] Vladislav Maldonado MD Work Phone: Start: 09-19-2022 Dual energy X-ray absorptiometry No Primary Care Physician Start: 09-01-2022 Screening mammography No Primary Care Physician H/O: surgery H/O rectal sphincterotomy History of cholecystectomy History of cholecystectomy Plan of Treatment Date Care Activity Detail Author Start: 04-24-2025 Laparoscopic appendectomy Laparoscopic, Appendectomy (Not Applicable) [facility] Start: 04-24-2025 Computed tomography of abdomen and pelvis with intravenous contrast Abdomen/Pelvis W IV Cont ONLY [facility] Start: 04-24-2025 CT Abdomen and Pelvis W contrast IV [facility] DXA Bone [Mass/Area] Bone density [facility] Work Phone: Payers Date Payer Category Payer Unknown [id number] 2022 Self-pay [id number] 2022 Unknown [id number] 2008 Unknown [id number] 1965 Unknown [id number] 2.16.8 [id number] 1965 Unknown [id number] 2.16.8 [id number] 1965 Unknown [id number] 2.16.8 [id number] Unknown [id number] 2.16.8 [id number] Unknown [id number] 2.16.8 [id number] Unknown [id number] 2.16.8 [id number] Unknown [id number] 2.16.8 [id number] Unknown [id number] 2.16.8 [id number] Social History Date Type Detail Facility Start: 02-10-2021 End: 09-01-2022 Tobacco smoking status MIIS Unknown if ever smoked [facility] Start: 1965 Sex Assigned At Female [facility] Start: 04-24-2025 Tobacco smoking stat us MIIS Ex-smoker (finding) [facility] Goals Date Patient Goal Desired Activity /State History and physical note 04-24-2025 Note Date & Type Note Facility 04-24-2025 History and physi any note [facility] Clinical Note 04-15-2021 Note Date & Type Note Facility 04-15-2021 Note Infectious Disease COVID-19 Antibody Test: About This Test What is it? An antibody test looks for antibodies in the blood. These are proteins that your immune system makes, usually after you're exposed to germs like viruses or bacteria or after you get a vaccine. Antibodies work to fight illness. A COVID-19 antibody test looks for antibodies to SARS-CoV-2, the virus that causes COVID-19. If you test positive for these antibodies, it could mean that you already had COVID-19. Why is it done? This test can be used to diagnose a past infection with the virus that causes COVID-19. Many people who get COVID-19 never have symptoms or have only mild ones. Without antibody testing, these people might never know that they already had the virus. Antibody testing is important because: ? It could show who has already had COVID-19. These people might be safe to go back to work or school or to travel. ? It could show who hasn't had the infection. These people are still at risk. They need to keep taking steps to avoid the virus. ? It helps experts who are tracking COVID-19 learn more about the virus and how it spreads. How do you prepare for the test? You don't need to do anything to prepare for this test. But be sure to follow any instructions your health care provider gives you. How is it done? This is a blood test. A health professional may prick your finger or use a needle to take a sample of blood from your arm. What do your results mean? The result is either positive or negative. A positive result means antibodies to SARS-CoV-2 were found. You probably already had COVID-19. But: ? You could get a false-positive result. The test might show that you have COVID-19 antibodies when you don't. The test may find antibodies that formed in response to another type of coronavirus. If this happens, you're still at risk for COVID-19. ? It's not certain that having these antibodies will protect you from getting COVID-19 again. And if it does, it's not clear how long the protection lasts. A negative result means that these antibodies were not found. You probably haven't had COVID-19. But: ? You could get a false-negative result. It takes a while after you're infected for your immune system to make antibodies. You could have a negative result but be infected now. You'd need a different test (viral test) to know if you have COVID-19 now. Where can you learn more? Go to https://www.Zoomingo.net/patientEd Enter A128 in the search box to learn more about COVID-19 Antibody Test: About This Test. Current as of: May 18, 2020 Content Version: 12.7 ? [employer]. Care instructions adapted under license by your healthcare professional. If you have questions about a medical condition or this instruction, always ask your healthcare professional. [employer] disclaims any warranty or liability for your use of this information. [facility] Evaluation note Note Date & Type Note Facility Evaluation note No assessment information availa ble [facility] Work Phone: Evaluation note Note Date & Type Note Facility Evaluation note Diagnosis Onset Date Encounter for routine gyneco logical examination noneactive [facility] Work Phone: Evaluation note Note Date & Type Note Facility Evaluation note Diagnosis Onset Date Resolution Acute appendicitis acute April 24, 2025 1:51pm [facility] Work Phone: History and physical note Note Date & Type Note Facility History and physical note Note Date/Time April 24, 2025 2:07pm [facility] Medical Records Department [address] [place] [address] H&P Exam - Surgical 04/24/25 1406 MR#: [id number] Acct: [id number] Name: XIMENA MCCARTNEY Rep #:[id number] : 1965 60 From: Derik ellington MD PCP: Dr. Vladislav Maldonado MD Status :[facility] Location: [facility] ACTB A-1 HPI - General HPI Narrative XIMENA MCCARTNEY, is a 60 F who presents with pain since yesterday. The pain is inthe right lower quadrant. She denies nausea or vomiting. Denies fevers or chills. She has a history of laparoscopic cholecystectomy. [facility] Medical History Anal fissure Melanoma Borderline high cholesterol Home Medications ?Medication ?Instructions ?Recorded ?Last Taken ?Type multivitamin 1 tab PO DAILY 02/10/21 Unkn own History vitamin B complex (B 1 tab PO DAILY 02/10/21 Unkn own History Complex-Vitamin B12 tablet) Allergy/AdvReac Type Severity Reaction Status Date / Time No Known Allergies Allergy Verified 04/24/25 12:08 Family History Mother Cancer uterine Father CVA (cerebral vascular accident) Surgical History History of surgery on arm H/O rectal sphincterotomy H/O dilation and curettage History of cholecystectomy Social History household members: spouse Smoking Status: Former smoker alcohol intake: current alcohol intake frequency: holidays/special occasions only details: social substance use type: does not use caffeine: Yes what type of physical activity do you participate in: other details: 10,000 steps per day seatbelt use: always do you feel safe at home: Yes Vital Signs Vital Signs Vital Signs: 04/24/25 12:08 Temperature 97.8 F Temperature Source Temporal Pulse Rate 77 Respiratory Rate 18 Blood Pressure 105/70 Blood Pressure Mean 81 Pulse Ox 100 Oxygen Delivery Method Room Air Weight Weight: 155 lb 11.2 oz Body Mass Index (BMI) 27.6 Physical Exam Const oriented x3 and no apparent distress Resp normal respiratory effort GI soft to palpation Palpation: tender RLQ Extremity normal to inspection Results Lab / Micro Data 04/24/25 12:15 04/24/25 12:15 Labs: Laboratory Results - last 24 hr 04/24/25 12:15: WBC 12.0 H, RBC 4.54, Hgb 12.9, Hct 38.6, MCV 85.0, MCH 28.4, MCHC 33.4, RDW Std Deviation 40.4, RDW Coeff of Neri 13.2, Plt Count 213, MPV 9.9, Immature Gran % (Auto) 1.200 H, Neut % (Auto) 84.4 H, Lymph % (Auto) 8.1 L,[place] % (Auto) 6.1, Eos % (Auto) 0.0, Baso % (Auto) 0.2, Absolute Neuts (auto) 10.2 H, Absolute Lymphs (auto) 0.97, Nucleated RBC % 0, Sodium 135, Potassium 3.6, Chloride 99, Carbon Dioxide 21.3, Anion Gap 15, BUN 12, Creatinine 0.65 L, Estim Creat Clear Calc 86.73, Est GFR (MDRD) Non-Af 101, BUN/Creatinine Ratio 17.8, Glucose 131 H, Calcium 9.5, Total Bilirubin 1.50 H, AST 74 H, ALT 80 H, Alkaline Phosphatase 178 H, Total Protein 7.7, Albumin 4.3, Globulin 3.3, Albumin/Globulin Ratio 1.3, Lipase 21 04/24/25 13:06: Urine Color , Urine Clarity Sl. Cloudy, Urine pH 5.0, Ur Specific [place] 1.025, Urine Protein 100 H, Urine Glucose (UA) Normal, Urine Ketones 150 A*, Urine Occult Blood 50 H, Urine Nitrite Negative, Urine Bilirubin1 H, Urine Urobilinogen 1 H, Ur Leukocyte Esterase 25 H, Urine RBC 0 SEEN, UrineWBC 0-5 SEEN, Ur Squamous Epith Cells 0-5 SEEN, Urine Bacteria 1+, Hyaline Casts0-5 SEEN, Urine Mucus 1+ Assessment & Plan Assessment/Plan (1) Acute appendicitis: PLAN: The patient has right lower quadrant pain and elevated white count. CT reveals inflamed right lower quadrant with an appendicolith and a dilated appendix. I discussed laparoscopic appendectomy with the patient in detail. I discussed the procedure as well as the risks including but not limited to bleeding, infection, injury to other organ such as the bowel, bladder, ureter. Patient understands all the risks and is 1 to proceed. Antibiotics have been ordered. Derik Keane MD Pager: [facility] [address] [place] [address], [address] [place] [address] Office: 04/24/25 1400 <Electronically signed by Derik eKane MD> Cosigner Signature (if applicable): CC: Dr. Derik Keane MD; Dr. Vladislav Maldonado MD~ Signed [facility] Work Phone: Reason for referral (narrative) Note Date & Type Note Facility Reason for referral (narrative) No reason for referral information available [facility] Work Phone: Summary Purpose Family History Relationship Condition Age at Onset Recorded Date/T zohra mother Malignant neoplasm Unknown father Cerebrovascular accident (CVA) Unknown Advance Directives Advance Directive Response Recorded Date/ Time Do you have a Healthcare Power of Claim Technician? No April 24, 2025 1:07pm Chief Complaint and Reason for Visit Chief Complaint SCREENING Annual (HARDNESS TESTER) Reason for Visit Encounter for routin e gynecological examination Chief Complaint SCREENING Annual (HARDNESS TESTER) POST ALEXANDER Reason for Visit Encounter for routin e gynecological examination Chief Complaint Admit Date APPENDIX April 24, 2025 1: 51pm Reason for Visit Admit Date Acute appendicitis April 24, 2025 1: 51pm Additional Source Comments INFORMATION SOURCE (unrecogn ized section and content) DATE CREATED AUTHOR 10/17/2018 [facility] DATE CREATED AUTHOR AUTHOR'S ORGANIZ ATION 10/23/2018 [facility] DATE CREATED AUTHOR AUTHOR'S ORGANIZ ATION 04/20/2021 [facility] DATE CREATED AUTHOR AUTHOR'S ORGANIZ ATION 01/26/2022 [facility] DATE CREATED AUTHOR AUTHOR'S ORGANIZ ATION 09/26/2022 [facility] Goals (unrecognized section and content) Goals may be documented in a n alternate sectionGoals may be documented in an alternate sectionGoals may be documented in an alternate section Care Teams (unrecognized sec tion and content) Team Status: Active Member Role Status Dates Dr. Carlos Maldonado MD Primary Care Provider Activ e Team Status: Inactive Member Role Status Dates No Primary Care Physician Referring Provider Active Dr. Maryana Jernigan MD Attending Provider Active Dr. Carlos Maldonado MD Primary Care Provider Activ e Team Status: Inactive Member Role Status Dates Yuly Acuña SCIENTIFIC PROCESS OPERATOR, SCIENTIFIC PROCESS OPERATOR-C Attending Provider Active Dr. Carlos Maldonado MD Primary Care Provider Activ e Team Status: Inactive Member Role Status Dates Dr. Carlos Maldonado MD Primary Care Provider, Attending Provider, Referring Provider Active Team Status: Inactive Member Role Status Dates Dr. Carlos Maldonado MD Primary Care Provider Activ e Dr. Maryana Jernigan MD Attending Provider, Referr ing Provider Active Team Status: Active Member Role/Relationship Status Dates Dr. Vladislav Maldonado MD Primary Care Provider Acti ve Team Status: Active Member Role/Relationship Status Dates Dr. Vladislav Maldonado MD Primary Care Provider Acti ve Start: April 24, 2025 Dr. Josue Izaguirre DO Emergency Provider Active Start: April 24, 2025 Dr. Derik Keane MD Attending Provider Active Start: April 24, 2025 FOR RECORDS PERTAINING TO PATIENTS WHO ARE OR HAVE BEEN ENROLLED IN A CHEMICAL DEPENDENCY/SUBSTANCEABUSE PROGRAM, SOME INFORMATION MAY BE OMITTED. This clinical summary was aggregated from multiple sources. Caution should be exercised in using it in the provision of clinical care. This summary normalizes information from multiple sources, and as a consequence, information in this document may materially change the coding, format and clinical context of patient data. In addition, data may be omitted in some cases. CLINICAL DECISIONS SHOULD BE BASED ON THE PRIMARY CLINICAL RECORDS. [facility] [employer] [facility]. provides no warranty or guarantee of the accuracy or completeness of information in this document.
[2025-04-24] MEDS: 0.9% Normal Saline (1000mL) 1,000 ML 100 ML IV (16:58)
[2025-04-24] MEDS: 0.9% Saline Lock 10 ML Syringe IV (17:04)
[2025-04-24] MEDS: Piperacil/Tazobactam 3.375 GM in 0.9% Normal Saline (50mL MB+) 50 ML IV (21:13)
[2025-04-25] VITALS (7 sets, daily range): BP systolic 96–108; BP diastolic 57–62; PULSE 51–70; RESP 14–18; TEMP 36.4–37.2; O2SAT 97–100
[2025-04-25] MEDS: 0.9% Normal Saline (1000mL) 1,000 ML 100 ML IV ×3 (01:27→21:27)
[2025-04-25 04:59] LABS: Hematocrit 33.8 % (37-47); Hemoglobin 11.0 g/dL (12.0-15.0); Immature Granulocytes Count 0.020 X10^3/uL (0.0-0.0); Mean Corp Hgb Conc 32.5 g/dL (32-36); Mean Corpuscular Volume 87.6 fL (81-99); Mean Platelet Vol. 10.2 fl (6.2-12.0); NRBC Flagged by Analyzer 0 % (0-5); POSITIVE MORPHOLOGY YES; Platelet Count 165 K/mm3 (150-450); RBC Distribution Width CV 13.4 % (11.6-14.6); RBC Distribution Width SD 42.9 fl (35.1-43.9); Red Blood Count 3.86 M/mm3 (4.2-5.4); White Blood Count 8.4 K/mm3 (4.4-11.0)
[2025-04-25 05:38] LABS: Differential Indicated SCAN CRITERIA MET
[2025-04-25 06:17] LABS: Anion Gap 13 (5-15); BUN 10 mg/dL (4-19); BUN/Creat Ratio 17.5 RATIO (10-20); Calcium,Total 8.6 mg/dL (7.6-11.0); Carbon Dioxide 20.5 mmol/L (21.0-32.0); Chloride 106 mmol/L (98-108); Estimated Creatinine Clearance 102.50 ml/min (50-250); Glucose 149 mg/dL (70-99); Potassium 3.9 mmol/L (3.3-5.1)
[2025-04-25] MEDS: Piperacil/Tazobactam 3.375 GM in 0.9% Normal Saline (50mL MB+) 50 ML IV ×3 (06:19→21:28)
[2025-04-25 06:44] LABS: Differential Comment SCANNED
--- NOTE | 2025-04-25 08:05 | PN.SURG_ITS ---
Subjective Subjective Patient seen and examined during AM rounds. She is found resting in bed. She states that overall she is feeling better but does still have some pain around her drain site. She has only tried some liquids and a few crackers but has done so without nausea. She does remark of some belching. Objective Data Objective Data Vital Signs: Vital Signs Temp Pulse Resp BP Pulse Ox O2 Del Method O2 Flow Rate 98.2 F 57 L 14 102/61 97 Room Air 2 04/25/25 06:14 04/25/25 06:14 04/25/25 06:14 04/25/25 06:14 04/25/25 06:14 04/25/25 06:14 04/24/25 15:40 Oxygen Flow Rate (L/min) 2 Oxygen Delivery Method Room Air Weight: 155 lb 11.2 oz Body Mass Index (BMI) 27.6 Intake & Output: Intake and Output for Last 24 Hours 04/23/25 04/24/25 04/25/25 23:59 23:59 23:59 Intake Total 1281.25 / 1281.25 998.33 / 998.33 Output Total 100 / 100 30 / 30 Balance 1181.25 / 1181.25 968.33 / 968.33 Lab / Micro Data 04/25/25 03:53 04/25/25 03:53 Labs: Laboratory Results - last 24 hr 04/24/25 12:15: WBC 12.0 H, RBC 4.54, Hgb 12.9, Hct 38.6, MCV 85.0, MCH 28.4, MCHC 33.4, RDW Std Deviation 40.4, RDW Coeff of Neri 13.2, Plt Count 213, MPV 9.9, Immature Gran % (Auto) 1.200 H, Neut % (Auto) 84.4 H, Lymph % (Auto) 8.1 L, [place] % (Auto) 6.1, Eos % (Auto) 0.0, Baso % (Auto) 0.2, Absolute Neuts (auto) 10.2 H, Absolute Lymphs (auto) 0.97, Nucleated RBC % 0, Sodium 135, Potassium 3.6, Chloride 99, Carbon Dioxide 21.3, Anion Gap 15, BUN 12, Creatinine 0.65 L, Estim Creat Clear Calc 86.73, Est GFR (MDRD) Non-Af 101, BUN/Creatinine Ratio 17.8, Glucose 131 H, Calcium 9.5, Total Bilirubin 1.50 H, AST 74 H, ALT 80 H, A lkaline Phosphatase 178 H, Total Protein 7.7, Albumin 4.3, Globulin 3.3, Albumin/Globulin Ratio 1.3, Lipase 21 04/24/25 13:06: Urine Color , Urine Clarity Sl. Cloudy, Urine pH 5.0, Ur Specific [place] 1.025, Urine Protein 100 H, Urine Glucose (UA) Normal, Urine Ketones 150 A*, Urine Occult Blood 50 H, Urine Nitrite Negative, Urine Bilirubin 1 H, Urine Urobilinogen 1 H, Ur Leukocyte Esterase 25 H, Urine RBC 0 SEEN, Urine WBC 0-5 SEEN, Ur Squamous Epith Cells 0-5 SEEN, Urine Bacteria 1+, Hyaline Casts 0-5 SEEN, Urine Mucus 1+ 04/25/25 03:53: WBC 8.4, RBC 3.86 L, Hgb 11.0 L, Hct 33.8 L, MCV 87.6, MCH 28.5, MCHC 32.5, RDW Std Deviation 42.9, RDW Coeff of Neri 13.4, Plt Count 165, MPV 10.2, Immature Gran % (Auto) 0.200, Neut % (Auto) 84.7 H, Lymph % (Auto) 9.3 L, [place] % (Auto) 5.6, Eos % (Auto) 0.0, Baso % (Auto) 0.2, Absolute Neuts (auto) 7.1, Absolute Lymphs (auto) 0.78 L, Nucleated RBC % 0, Differential Comment SCANNED, Sodium 139, Potassium 3.9, Chloride 106, Carbon Dioxide 20.5 L, Anion Gap 13, BUN 10, Creatinine 0.55 L, Estim Creat Clear Calc 102.50, Est GFR (MDRD) Non-Af 105, BUN/Creatinine Ratio 17.5, Glucose 149 H, Calcium 8.6 Radiography Diagnostic Testing: Radiology Impression Abdomen/Pelvis CT 04/24/25 12:50 IMPRESSION: Status post cholecystectomy. Mild degree of central intrahepatic biliary ductal dilatation. Tiny calculus in the lower pole calyx of the right kidney. Findings in keeping with acute appendicitis with evidence of calcified appendicolith within the appendix. Surrounding inflammatory changes and tiny amount of fluid. Reading Location: [id number] Physical Exam Const oriented x3 and no apparent distress Resp normal respiratory effort GI GI Narrative: Operative dressings are clean dry and intact, nondistended, soft, left lower quadrant operative drain with bloody output. Assessment & Plan Assessment/Plan (1) Acute appendicitis: PLAN: Patient is 60-year-old female postoperative day 1 from laparoscopic appendectomy with intraoperative confirmation of perforated appendicitis. Overall she is doing as expected today with some slight postoperative discomfort and some belching with her dietary intake. She is encouraged to increase her mobility and try chewing gum or hard candy alongside of gradually advancing her diet. Will plan to reassess later today. It is encouraging that her white blood cell count has returned to normal and she has remained afebrile. Given her drain output being nonpurulent could consider removal if it appears she may be eligible for discharge to home. Thierry Louise MD General Surgery Endocrine Surgery Pager: [facility] [address] [place] [address] [place] [address] Office: [phone]
--- NOTE | 2025-04-25 11:26 | CASEMGMT ---
Social Work SW met w/pt and granddaughter regarding self pay status, provided resources. Pt lives in [place]. SW gave pt information on [facility], a list of [facility] Resources, Medicaid application, and a list of prescription assistance programs. SW offered pt information on [facility] assist, pt declined this information. Pt would be interested in speaking w/Connie from [employer] in regard to applying for Medicaid. SW sent her an email asking her to follow up. It is not anticipate pt will have any homegoing needs. SW remains available should any needs arise. MARCIE Vargas
[2025-04-26] MEDS: 0.9% Saline Lock 10 ML Syringe IV (00:09)
[2025-04-26 01:51] VITALS: BP 117/58; PULSE 53; RESP 16; TEMP 36.8; O2SAT 98
[2025-04-26] MEDS: Piperacil/Tazobactam 3.375 GM in 0.9% Normal Saline (50mL MB+) 50 ML IV (05:46)
[2025-04-26] MEDS: 0.9% Normal Saline (1000mL) 1,000 ML 100 ML IV (05:50)
[2025-04-26 06:01] LABS: Hematocrit 30.0 % (37-47); Hemoglobin 9.7 g/dL (12.0-15.0); Immature Granulocytes Count 0.030 X10^3/uL (0.0-0.0); Mean Corp Hgb Conc 32.3 g/dL (32-36); Mean Corpuscular Volume 86.0 fL (81-99); Mean Platelet Vol. 10.2 fl (6.2-12.0); NRBC Flagged by Analyzer 0 % (0-5); Platelet Count 175 K/mm3 (150-450); RBC Distribution Width CV 13.5 % (11.6-14.6); RBC Distribution Width SD 42.2 fl (35.1-43.9); Red Blood Count 3.49 M/mm3 (4.2-5.4); White Blood Count 7.6 K/mm3 (4.4-11.0)
[2025-04-26 06:36] LABS: AST(SGOT) 85 U/L (<=31); Alanine Aminotransfer ALT/SGPT 269 U/L (<=34); Albumin, Serum 3.0 g/dL (3.4-4.8); Alkaline Phosphatase 200 U/L (35-104); Anion Gap 12 (5-15); BUN 11 mg/dL (4-19); BUN/Creat Ratio 20.6 RATIO (10-20); Calcium,Total 8.7 mg/dL (7.6-11.0); Carbon Dioxide 19.4 mmol/L (21.0-32.0); Chloride 107 mmol/L (98-108); Estimated Creatinine Clearance 104.40 ml/min (50-250); Globulin 2.9 g/dL (2.2-4.2); Glucose 82 mg/dL (70-99); Potassium 3.3 mmol/L (3.3-5.1)
[2025-04-26] MEDS: Potassium Chloride Oral Tablet 20 MEQ 40 MEQ PO (08:43)
[2025-04-26 09:00] VITALS: BP 123/65; PULSE 70; RESP 18; TEMP 36.8; O2SAT 97
--- NOTE | 2025-04-26 09:11 | DCINST_ITS ---
Discharge Instructions DC O2, CPAP, BIPAP needs Home O2 Discharge instructions: No Dressing / Incision Discharge Activity: May Not Drive (No driving while using narcotic pain medication) and May Shower (Please cover drain site) May shower in (days): 0 Ice area for (Minutes): 20 Lifting Restrictions: No lifting greater than 15 pounds for 2 weeks after surgery Dressing / Incision Call your doctor if your incision/area has: Continuous Slow Oozing, Increased Pain/ Swelling, Increased Redness, Foul Smelling Discharge and Swelling at the incision site Call your doctor if you observe: Fever of 101 or Higher, Prolonged hiccupping and Uncontrolled pain Remove Dressing in: 2 days (Please leave Steri-Strips intact until they fall off spontaneously or are taken off at your follow-up visit) Cleanse incision/area with: Soap & Water Follow Up Care Please Follow Up With: Derik Keane MD When: 7-10 days Test Results: Test results from this visit will be discussed in further detail at your follow- up appointment, if applicable. Discharge Plan Admission Admit Date/Time: 04/25/25 15:19 Primary Reason for Your Visit: appendectomy Attending Provider: Derik Keane Primary Care Provider: Kraig Maldonado Discharge Orders/Prescriptions Prescriptions: New amoxicillin-pot clavulanate 875-125 mg Tablet 1 tab PO BID 2 Days Qty: 4 0RF Continued multivitamin Tablet 1 tab PO DAILY vitamin B complex [B Complex-Vitamin B12] Tablet 1 tab PO DAILY Referrals / Follow Up: Kraig Maldonado MD [Primary Care Provider] - Disposition Disposition (needs filled in before D/C Order can be placed): Home, Self Care
--- NOTE | 2025-04-26 09:18 | PCM.DC.SUM ---
Providers Date of Admission: 04/25/25 Primary Care Physician: Dr. Kraig Maldonado MD Reason For Visit: ACUTE APPENDICITIS Diagnosis Discharge Diagnosis (1) Acute appendicitis: Status: Acute Code(s): K35.80 - Unspecified acute appendicitis Plan: Patient is 60-year-old female postoperative day 1 from laparoscopic appendectomy with intraoperative confirmation of perforated appendicitis. Overall she is doing as expected today with some slight postoperative discomfort and some belching with her dietary intake. She is encouraged to increase her mobility and try chewing gum or hard candy alongside of gradually advancing her diet. Will plan to reassess later today. It is encouraging that her white blood cell count has returned to normal and she has remained afebrile. Given her drain output being nonpurulent could consider removal if it appears she may be eligible for discharge to home. Thierry Louise MD General Surgery Endocrine Surgery Pager: [facility] [address] [place] [address], [address] [place] [id number] Office: [phone] Medications at Discharge Home Medications multivitamin 1 tab PO DAILY 02/10/21 vitamin B complex (B Complex-Vitamin B12 tablet) 1 tab PO DAILY 02/10/21 amoxicillin 875 mg-potassium clavulanate 125 mg tablet 1 tab PO BID 2 days #4 tabs 04/26/25 Hospital Course Operations appendectomy Summary of Care Provided Hospital Course: Patient is 60-year-old female who presented to [facility] ER with acute onset abdominal discomfort and was ultimately diagnosed with acute appendicitis. Upon CT imaging showing this diagnosis Dr. Keane met with her in the ER and booked her for emergent surgical appendectomy. Intraoperatively patient was found to have perforated appendicitis, but the procedure otherwise proceeded uneventfully. She was admitted to the hospital following the operation for ongoing monitoring. While she was advanced to a regular diet she was carefully monitored for any signs of an ileus. She experienced return of bowel function on postoperative day 2 with flatus, initially, and then the bowel movement later in the course of the day. Upon observing an afebrile state and clearing of her surgical drain this was removed on postoperative day 2. Patient demonstrated excellent pain control and tolerance of a diet so she has ultimately granted discharge to home after postoperative wound care instructions were reviewed and an expectation for outpatient follow-up was discussed. She was maintained on antibiotic therapy for another 2 days duration given her evidence of intraperitoneal contamination intraoperatively. Physical Exam Const alert, oriented x3 and no apparent distress Resp normal respiratory effort GI soft to palpation and non-distended GI Narrative: Steri-Strips remain intact about port sites that are otherwise nonerythematous and well-approximated. Dressing over drain site Weight / BMI Weight Weight: 155 lb 11.2 oz Body Mass Index (BMI) 27.6 ABG / Lab / Microbiology Data 04/26/25 05:48 04/26/25 05:48 Laboratory: Laboratory Results - last 24 hr 04/26/25 05:48: WBC 7.6, RBC 3.49 L, Hgb 9.7 L, Hct 30.0 L, MCV 86.0, MCH 27.8, MCHC 32.3, RDW Std Deviation 42.2, RDW Coeff of Neri 13.5, Plt Count 175, MPV 10.2, Immature Gran % (Auto) 0.400, Neut % (Auto) 73.7 H, Lymph % (Auto) 20.3, Terry % (Auto) 5.4, Eos % (Auto) 0.1, Baso % (Auto) 0.1, Absolute Neuts (auto) 5.6, Absolute Lymphs (auto) 1.55, Nucleated RBC % 0, Sodium 139, Potassium 3.3, Chloride 107, Carbon Dioxide 19.4 L, Anion Gap 12, BUN 11, Creatinine 0.54 L, Estim Creat Clear Calc 104.40, Est GFR (MDRD) Non-Af 105, BUN/Creatinine Ratio 20.6 H, Glucose 82, Calcium 8.7, Total Bilirubin 1.19, AST 85 H, ALT 269 H, Alkaline Phosphatase 200 H, Total Protein 5.9, Albumin 3.0 L, Globulin 2.9, Albumin/Globulin Ratio 1.1 D/C Instructions May shower in (days): 0 Ice area for (Minutes): 20 Call your doctor if your incision/area has: Continuous Slow Oozing, Increased Pain/ Swelling, Increased Redness, Foul Smelling Discharge and Swelling at the incision site Call your doctor if you observe: Fever of 101 or Higher, Prolonged hiccupping and Uncontrolled pain Cleanse incision/area with: Soap & Water DC O2, CPAP, BIPAP Needs Home O2 Discharge instructions: No Please Follow Up With: Derik Keane MD When: 7-10 days Meaningful Use Info Meaningful Use Meaningful Use Diagnoses (Choose all that apply): None applicable Discharge Plan Admission Admit Date/Time: 04/25/25 15:19 Primary Reason for Your Visit: appendectomy Attending Provider: Derik Keane Primary Care Provider: Kraig Maldonado Discharge Orders/Prescriptions Prescriptions: New amoxicillin-pot clavulanate 875-125 mg Tablet 1 tab PO BID 2 Days Qty: 4 0RF Continued multivitamin Tablet 1 tab PO DAILY vitamin B complex [B Complex-Vitamin B12] Tablet 1 tab PO DAILY Referrals / Follow Up: Kraig Maldonado MD [Primary Care Provider] - Disposition Disposition (needs filled in before D/C Order can be placed): Home, Self Care Charges/Coding Visit Charges Inpatient E&M: 60628 Disch Hosp
[2025-04-26 12:04] VITALS: BP 114/55; PULSE 60; RESP 18; TEMP 36.6; O2SAT 98
== END 2025-04-26 14:38 | disposition home or self-care (01) | DRG 399 ==
LOC: ED 13:43 → SDC 13:52 → ACINP 13:54 → SDC 15:56 → MS3 15:56
PROVIDERS: Physician Assistant; Surgery; Admitting Provider Surgery; Emergency Provider Emergency Medicine; PCP Family Medicine; Visit Provider Surgery
PROC: 0DTJ4ZZ Resection of Appendix, Percutaneous Endoscopic Approach (ICD-10-PCS; CPT 44970; principal; 2025-04-24 13:25)
DX: K35.32 Acute appendicitis with perforation, localized peritonitis, and gangrene, without abscess (principal); Z87.891 Personal history of nicotine dependence
CPT/HCPCS: 36415; 74177; 80048; 80053; 81001; 83690; 85025; 88304; 99284; Q9967; A4216; J2405